=== PATIENT | female | born 2000 | race Caucasian/White ===

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

== ENCOUNTER 2020-05-15 11:26 | Emergency (ER) | payer OTHER ==
[~2020-05-15] VITALS: Ht 167.6 cm; Wt 117.0 kg
--- OUTSIDE RECORDS SUMMARY | ~2020-05-15 | XMS | Encounter Summary ---
Demographics + + + | Address | [address] | | | [place] [address] | + + + | Home Phone | | + + + | Preferred Language | Unknown | + + + | Marital Status | Single | + + + | Roman Catholic Affiliation | Unknown | + + + | Race | White | + + + | Ethnic Group | Not or | + + + Author + + + | Author | [facility] | + + + | Organization | [facility] | + + + | Address | Unknown | + + + | Phone | Unavailable | + + + Support + + + + + | Name | Relationship | Address | Phone | + + + + + | None None | ECON | Unknown | Unavailable | + + + + + | Heriberto Winter | ECON | [address] [address] | | | | | [place] | | | | | [id number] | | + + + + + Care Team Providers + +------+ + | Care Aging Room Hand Name | Role | Phone | + +------+ + PCP | Unavailable | + +------+ + Encounter Details +--------+ + + + + | Date | Type | Department | Care Team | Description | +--------+ + + + + | 12/07/ | Office | [facility] | Consult, [facility] | Progress Note | | 2004 | Visit-Trans | | | | | | cribed | | | | +--------+ + + + + Social History + +-------+ +--------+------+ | Tobacco Use | Types | Packs/Day | Years | Date | | | | | Used | | + +-------+ +--------+------+ | Never Assessed | | | | | + +-------+ +--------+------+ + + + | Sex Assigned at | Date Recorded | | | | + + + | Not on file | | + + + + + + + | Job Start Date | Occupation | Industry | + + + + | Not on file | Not on file | Not on file | + + + + + + + + | Travel History | Travel Start | Travel End | + + + + + + | No recent travel history available. | + + documented as of this encounter Progress Notes Interface, Orchestrator In - 06/17/2005 12:44 AM PDT [id number] 12/07/2004 12/07/2004 [id number] [facility] Date: 12/07/2004 Clinic Name [facility] Discipline Speech Language Pathology Susan Winter, a [age]-year, [id number] girl, [facility]. Susan was referred for this developmental evaluation by her primary care physician, Dr. Camille Addison, of [place], [place]. Susan was evaluated through the [facility] and was seen by developmental pediatrics, psychology, occupational therapy, and speech language pathology. Susan comes to us today with concerns regarding her speech language development, behavioral issues, attention and learning difficulty. Susan was accompanied to today's evaluation by her mother, Francoise, and her father, Heriberto. Background: This information is obtained via chart review and parent report. This young lady's history is rather benign. Susan was born weighing 7 pounds, 10 ounces with a hospital stay of only two days. During delivery, reports indicate that the doctor induced labor. Reports also indicate that the umbilical cord was wrapped around this young lady's neck. Susan did experience jaundice; however, no treatment was needed. At approximately six months' of age, she did experience an episode of RSV, and health history is significant for vomiting spells until [age] years of age and frequent otitis media until [age] years of age (please see developmental pediatrics report for further details). In terms of development, this young lady rolled over at approximately four months of age, sat up at [age] and a half months of age, walked at [age] year [age] months, produced her first words at approximately [age] year [age] three months, and started using words in combination at approximately [age] years. Her mother does feel that there was some delay in her continued acquisition of speech and language skills; however, she was relatively on time using her first words. 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 She does participate three times a week for approximately three hours a day. In addition, this young lady receives direct speech language treatment twice monthly for 30 minutes each session as well as consults twice monthly for 15 minutes each session. Her parents do report that they are considering adding occupational therapy services. We do believe that this young lady's eligibility for control analyst special education is under developmental delay. This young lady has been previously evaluated by the educational service district. Cognitive testing was completed (please see psychology report for details). Her last speech language evaluation took place in August of 2004. Results on the Preschool Language Scale-Fourth Edition indicate a receptive language standard score of 74 and an expressive language standard score of 85. Susan has also participated in childcare five days weekly for approximately 8.5 hours a day. A total of 10 other children were in this home setting. Her mother does report that she has been recently asked to leave (please see psychology report for details). Family History: There is no significant family history to report; however, Susan's mother does report that she was slow in learning to talk. Speech and Language Evaluation Behavioral Observation: Susan's behaviors were evaluated using the Autism Diagnostic Observation Schedule (ADOS), module II. This assessment provides us opportunities to evaluate Susan's communication, social interaction, and play with developmentally appropriate toys in structured play interactions. Module II was selected because of Susan's spontaneous phrased speech. This evaluation also allows us opportunities to observe and illicit behaviors so that we might differentiate those consistent with autistic disorder and disorders found on the autism spectrum from those of typically developing children. Communication: In terms of communication skills, Susan was noted to use a variety of spontaneous sentences in order to engage her communication partner. She regularly produced sentences between two and five words in length. Susan regularly used language throughout today's evaluation to serve such functions as requesting information ( what dem doing ), provide information ( blanket away because baby got sick ), responding to questions, and for commenting ( all done dis toy, him take da bath, go into car but it don't open it ). Susan does demonstrate considerable difficulty with appropriate syntax and seems to omit very basic language forms from her spontaneous speech. She does use communication for social interaction and engagement and is able to pair this with conventional gestures. She shook her head yes and no, shrugged her shoulders, and was observed using a touch point and a distal point to respond and to initiate joint attention. While Susan communicated effectively throughout today's observation, her language skills are immature given her chronological age. Susan did demonstrate some pronoun confusion and deletion and deletion and confusion using verbs to be. For example, Susan produced the sentences, Get him climb up the waddle, Her all done, Her got warm feet up, and Inside sleep. Children Susan's chronological age generally use more adult-like sentences such as, She's all done, She's inside sleeping, I'm all done, and What are they doing. Susan was also noted to delete plurals in sentences toy/toys, bubble/bubbles, and was inconsistent in her use of present progressive ing. Social Interaction: In terms of reciprocal and social interaction, Susan frequently initiated interactions with the assessing clinician. Susan had little difficulty indicating what she wanted and in multiple occasions directed the clinician's attention and actions so that she could obtain desired items. Susan responded to her name on first press and regularly used eye contact to initiate, maintain, and disengage from the social interaction. Susan was able to respond to her play partner's joint attention by using eye contact and the word look to locate her play partner's point of interest. She was able to demonstrate her knowledge of social routines by actively participating in a birthday constitution party scenario and recognized the baby doll as an independent agent. She talked to the baby doll, fed her, and supported her when she had the baby doll blow out pretend candles. Susan did enjoy participating in the singing of happy birthday; however, she had a difficult time with the multi-syllabic word happy and instead was observed producing hap birthday instead of happy birthday while singing. Susan was able to indicate her pleasure and displeasure throughout today's observation and was observed smiling and laughing in the presence of her play partner. Play: In terms of play, Susan was noted to play functionally with a variety of toys presented including those used in a birthday constitution party scenario and small figures. Susan did have some difficulty with imagination and creativity, as her ability to expand her play using the small characters was limited in range. Susan was able to present a family scenario using these characters. Stereotyped Behaviors and Restrictive Interests: Susan did not display any unusual interest in play materials nor were hand mannerisms observed. This young lady was quite appropriate; no self injurious behavior was observed nor were any unusual repetitive interests or stereotyped behaviors seen. The ADOS yields both the communication score and the social interaction score which are then combined to yield a total score. These scores help clinicians on the autism team determine if a child's behavior is more or less similar to children who have been diagnosed with autistic disorder or disorders on the autism spectrum from those of typically developing children. Susan's performance yielded her a communication score of 3 which is below the cutoff for autism. In terms of reciprocal social interaction, Susan achieved a score of 0 which is below the cutoff for autism. By combining the two, this young lady achieved a score of 3 which is below the cutoff for autism. In terms of play, she achieved an imagination activity score of 1 and a score of 0 for stereotyped behaviors and restrictive interests. These scores would indicate that Susan's behaviors are not very similar to those behaviors observed in children with a diagnosis of autistic disorder. This evaluation did give us opportunities to evaluate her language as indicated above. Susan does have a difficult time maintaining a level of reciprocity in conversation as well as coordinating more informational gestures with her language. However, we do feel that these deficits in communicating have more to do with language deficits than behaviors that might be seen in a child with autism. Behavioral Observation 2: Susan's behaviors were also evaluated using the Autism Screening Instrument for Educational Planning (ASIEP-II). This is a standardized tool used to compare a child's given behaviors with behaviors exhibited by children who have already been diagnosed with autism. The interaction assessment subtest provides us opportunities to evaluate children's interaction, constructive independent play, lack of response, or aggressive or negative behavior. During this observation, Susan participates in three play scenarios including active modeling where her play partner plays in parallel but does not overtly engage her. Second, when her play partner sits back passively but can respond to her initiations, and thirdly, when she is given direct, unambiguous cues such as stand up, give me the bear, let's jump, etc. Out of 48 opportunities, Susan demonstrated interaction on 31 occasions, constructive independent play on 13 occasions, and no response on four occasions. By combining these scores, this young lady's interaction percentile is less than 2% which suggests that her behaviors are less in keeping with children with a diagnosis of autism and much more interactive than would be seen with a child of autistic disorder. Speech Sound Production/Articulation: No formal articulation measures were completed today. However, based on informal observation, this young lady continues to demonstrate what we would consider phonological patterns including the truncation of words or syllablness and the gliding of L and R, however still considered developmentally appropriate for a child this age. The sound substitution of D for N in medial position, fronting including K for T and D for G so that tiger is produced razia as well the omission of final consonants. This young lady was found to be 75-80% intelligible in a known context with her intelligibility greatly reduced when larger sentences were produced and the context was not known. Voice Resonance Fluency and Praucity: Susan presented with appropriate voice and resonant quality. No disfluent characteristics were noted. Procautic features including rate, rhythm, and loudness were appropriate. Oral Motor and Feeding: Cursory examination of this young lady's oral peripheral mechanism revealed appropriate muscle tone in her lips, tongue, and cheeks. This young lady's face is symmetrical at rest. She was able to manage secretions throughout today's evaluation and demonstrated appropriate range of motion for feeding and speech sound production. Impressions: Formal measures as well as observation raises a means to obtain needed information for differential diagnoses as well as to address concerns about Susan's development and possible diagnoses. Based on today's parental report, observation, evaluation, and team input, we find that Susan presents with receptive and expressive language disorder characterized by deficits in comprehension as well as syntax and morphology. In addition, articulation errors and phonological patterns were also observed. We do feel that this young lady's deficits are likely due in part to a diagnosis of global developmental delay with language being her greatest area of impact. Team Diagnoses 1. Global developmental delay. 2. Receptive language more impacted than expressive language. 3. Regulatory issues with concomitant behavior problems (please see psychology report and occupational therapy report for details). Recommendations 1. We do feel that Susan is appropriately placed in her control analyst special education classroom. She may also benefit from participation in a traditional community-based preschool so that she may learn from typically developing peers. It will be important for her to be closely monitored in terms of her behavior particularly in a community-based preschool to determine whether or not she would be able to function appropriately in a mainstream kindergarten classroom. 2. Given the nature of Susan's deficits, we do feel that additional speech language support would be warranted. We do feel at the very least that one-on-one speech language services one time weekly would be appropriate. We do understand that this level of service may not be possible through the control analyst special education program; however, we would recommend that the family consider seeking additional services through community providers. 3. As the family can support this young lady's level of comprehension by using short, concrete phrases as well as repetition, we do feel Susan may also benefit from participation in reading books with a repetitive line. We often find that a repetitive line provides children opportunities to be succesful. Books with repetative lines are predictable. Lines are seen on every page of a book providing children opportunities to practice more appropriate syntax in a comfortable, predictable environment such as book reading. Language goals should include pronoun use, verb use, appropriate morphological markers such as plural forms and present progressive ing as well as understanding and use of appropriate question forms. It was an absolute delight working with this young lady and her family today. Should you have any questions about today's evaluation, report, or recommendations, you may contact me directly at . For individual discipline findings, please see individual discipline reports. Anil Marcos M.S.Alyson Licensed Speech Language Pathologist [facility] [id number] C: 12/19/2004 ROGER [id number] Electronically signed by Anil Marcos 12-19-2004 01:37:51 PM documented i n this encounter Plan of Treatment Not on filedocumented as of this encounter Visit Diagnoses Not on filedocumented in this encounter"
--- OUTSIDE RECORDS SUMMARY | ~2020-05-15 | XMS | Encounter Summary ---
Demographics + + + | Address | [address] | | | [place] [address] | + + + | Home Phone | | + + + | Preferred Language | Unknown | + + + | Marital Status | Single | + + + | Buddhist Affiliation | Unknown | + + + | Race | White | + + + | Ethnic Group | Not or | + + + Author + + + | Author | [facility] | + + + | Organization | [facility] | + + + | Address | Unknown | + + + | Phone | Unavailable | + + + Support + + + + + | Name | Relationship | Address | Phone | + + + + + | None None | ECON | Unknown | Unavailable | + + + + + | Heriberto Winter | ECON | [address] | | | | | [place] | | | | | [address] | | + + + + + Care Team Providers + +------+ + | Care Director Behavioral Health Name | Role | Phone | + [...] as of this encounter Progress Notes Interface, Tax Director In - 06/17/2005 12:44 AM [facility] [id number] 12/07/2004 12/07/2004 [id number] [facility] Date: 12/07/2004 CLINIC NAME: [facility] DISCIPLINE: OCCUPATIONAL THERAPY BACKGROUND INFORMATION: Susan is a 4-year 7-month-old female, [facility] by her primary care physician, Dr. Camille Addison. She is referred with concerns about her delayed language skills and some behavior problems, including some manipulative behavior and difficulty with inattention. Her parents, Heriberto and Francoise Lawsonmillerzainab also have concerns about her developmental delays, language difficulties, attention difficulties, and behavior. Susan reportedly was born at term, weighing 7-pounds 10-ounces. She reportedly was jaundiced at . However, did not require any treatment. She also had respiratory syncytial virus at around [age] months of age. She had frequent vomiting until 3-years of age, and frequent otitis media until 2-years of age. Her motor milestones initially were within the average range, including rolling at four months, and sitting at 8 1/2 months. However, she did not walk until 17-months, and did not start combining words until 3-years-of age. EDUCATION: Susan is currently involved in a preschool program three days per week through the [facility]. She receives speech therapy two times per week and consultation two times per month, and is reportedly going to be starting occupational therapy services. Previous developmental testing, revealed some delays in her language scores, including a receptive language standard score of 74, and an expressive language standard score of 85 on the Preschool Language Scale-Fourth Edition. She obtained a full-scale standard score of 80 on the Liliana Preschool and Primary Scale of Intelligence. This testing was done in August of 2004. She reportedly has had some difficulty with behavior in her day care setting. Candis parents completed the Sensory Profile in September of 2004. This caregiver questionnaire was not repeated during today's evaluation. Susan was found to score in the definite difference range in the areas of vestibular, touch, and multisensory processing. She scored in the probable difference range in oral sensory processing. She reportedly seeks out opportunities to move, and she frequently touches things. However, she also avoids some tactile stimulation. She also has difficulty in the area of modulation related to body position and movement. She has difficulty sitting for long periods of time, and sustaining her attention. It was recommended that Susan receive direct and consultation occupational therapy services to develop a sensory diet plan, and to provide sensory modulation activities. PROCEDURES: Information for this evaluation was obtained by parent interview, clinical observations, and observations of the child's performance during specific tasks. In addition, the following assessments were administered: The Neri Scales of Early Learning AGF Edition. BEHAVIORAL OBSERVATIONS: Susan readily left her parents and came with this therapist to do some developmental testing. She was initially very cooperative, however, as she became more tired, she more frequently was up and out of her chair, and refusing to complete test items. She likes to draw, and will draw multiple circles, at times with lines coming off of the circles. She stated that these were pictures of a baby. TEST RESULTS: The Neri Scales of Early Learning is a standardized assessment, looking at the areas off visual spatial skills, fine motor skills, receptive and expressive language skills. The mean early learning composite standard score is 100 with a standard deviation of 15. Susan received a standard score of 61 and a percentile rank of 1. On the Visual Ecology Teacher Scale, she obtained a T-score of 29 and an age equivalent of 41-months. Susan was able to discriminate spatial position, and was able to match some letters. She had more difficulty matching short words and with visual memory tasks. On the Fine Motor Scale she obtained a T-score of 25 and an age equivalency of 40-months. She was able to draw through paths, and was able to use scissors in order to cut sequentially. She did not have to cut around any shapes on this particular task. She had more difficulty copying shapes unless they were circles. On the Receptive Language Scale, she obtained a T-score of 24 and an age equivalent of 36-months. She was able to identify the function of objects, and follow two-step commands. She also was able to answer several questions about general knowledge, such as her name, whether or not she was a boy or a girl, and how many eyes she had. When she was unable to answer a question, she would fill the conversation with some unrelated phrases. On the Expressive Language Scale, she obtained a T-score of 35 and an age equivalency of 43-months. Susan does use pronouns, and uses three to four-word sentences, and sometimes longer sentences when communicating. She was able to repeat short sentences. She had more difficulty using language to answer questions or to explain the meaning of a word. She also was not yet able to consistently count. Overall, Susan showed delays in all areas of development. Her expressive language score was her highest, and is a relative strength for her. Susan's parents were interviewed about her sensory processing issues. They report that tactually she enjoys a great deal of light stimulation around her face. She will tickle her face with a piece of fleece, as well as taking her mother's hair and gently rubbing it on her face. She likes her back rubbed lightly as well. She has no difficulty with messy or sticky textures, and her mother reports that when she was younger she emptied an entire container of Vaseline all over her room. She does not particularly like to be restrained or held tightly. In the area of auditory input, she showed some sensitivity to loud sounds. However, there are no particular sounds that seem to startle or bother her. She does not watch television unless it is a video tape and she does enjoy playing on the computer. Susan reportedly will pocket food, and hold it in her mouth for a period of time. She also needs liquids to help wash down the food. She will frequently chew meat, in order to get all of the flavor out, and then spit the meat back out. As an , she reportedly vomited easily, and would gag if the nipple of the bottle was placed in her mouth in the wrong place. She did not seem to have a great deal of difficulty transitioning to baby foods, and then to table foods, although she still does choke and gag occasionally. She prefers to brush her teeth on her own, but will allow her mother to do it. If her mother moves the toothbrush too far back over molars, it will elicit a gag. Susan is describes as an outside girl . She loves to be outside and loves to run and jump. Her parents report that movement does seem to help to calm her. Susan is described as doing well at birthday parties, and that she understands the concept of the alliance party. At daycare, she has had some difficulty, as she is often required to entertain herself. Her mother reports that given the opportunity, Susan will get into things that are inappropriate and frequently needs guidance and structure. DIAGNOSTIC IMPRESSION: Today's team found Susan to be demonstrating global delays in her development. She demonstrates more significant difficulty with receptive language than expressive language. Susan is also demonstrating regulatory issues, with concomitant behavior problems. She is a child who seeks out sensory input, but is easily over-stimulated, and then has difficulty calming herself. RECOMMENDATIONS: 1. Susan appears to be appropriately placed in an eyeglass lens grinder special education classroom. She will also benefit from participation in a traditional community-based preschool. It will very important to closely monitor her behavior in her community-based preschool to determine whether she would be able to function in a mainstream kindergarten classroom next year. 2. Susan is in need of additional speech and language services. We would recommend individual speech language therapy at least one time per week. While this level of service may not be possible through the [facility], parents should strongly consider additional services in the community. 3. In addition, Susan would benefit from direct occupational therapy with a sensory integrative approach. This was recommended previously and we support this recommendation. 4. Susan and her parents would benefit from working with a competent mental health professional (With a behavioral orientation), who can assist them in developing strategies to deal with Susan's attention-seeking. We do not know of such a professional in [place], but if the parents are interested in coming to [place], perhaps this summer, we would recommend working with Dr. Jd Garcia, [facility]. 5. Susan should be referred to the [facility]abilities Program in order to determine whether she qualifies for services through them. 6. Additional information about regulatory issues can be found on the Internet at www.[employer].Intrusic. Parents may also benefit from reading the book, Raising Your Spirited Child , by Loan Keithteri Marroquin. 7. Susan would benefit from a reevaluation of her developmental and behavioral status following her kindergarten year. We would be happy to provide this evaluation at parent request. To begin this intake process, please call the digital media coordinator at [phone]. I appreciated the opportunity to meet and work with Susan and her family. If there are any questions or concerns regarding this report, please free to contact this therapist at [phone]. Annie Cruz/laron P [phone] cc: Electronically signed by Jud Gaines 01-02-2005 04:40:13 PM documented i n this encounter Plan of Treatment Not on filedocumented as of this encounter Visit Diagnoses Not on filedocumented in this encounter"
--- OUTSIDE RECORDS SUMMARY | ~2020-05-15 | XMS | Encounter Summary ---
Demographics + + + | Address | [address] | | | [place] [address] | + + + | Home Phone [...] Author + + + | Author | [facility] | + + + | Organization | [facility] | + + + | Address | Unknown | + + + | Phone | Unavailable | + + + Support + + + + + | Name | Relationship | Address | Phone | + + + + + | None None | ECON | Unknown | Unavailable | + + + + + | Heriberto Winter | ECON | [address] [facility] | | | | | [place] | | | | | [address] | | + + + + + Care Team Providers + +------+ + | Care Restaurant Greeter Name | Role | Phone | + [...] as of this encounter Progress Notes Interface, Plug Machine Operator In - 06/17/2005 12:44 AM PDT [id number] 12/07/2004 12/07/2004 [id number] [facility] Date: 12/07/2004 Clinic Name [facility] Discipline Speech Language Pathology Susan Winter, a [age]-year, [id number]-ugy girl, was [facility]. Susan was referred for this developmental evaluation by her primary care physician, Dr. Camille Addison, of [place], [place]. Susan was evaluated through the Autism [...] young lady is currently enrolled in an fountain helper special education classroom through the [facility]. She does participate three times a week for approximately three hours a day. In addition, this young lady receives direct speech language treatment twice monthly for 30 minutes each session as well as consults twice monthly for 15 minutes each session. Her parents do report that they are considering adding occupational therapy services. We do believe that this young lady's eligibility for fountain helper special education is under developmental delay. This [...] routines by actively participating in a birthday republican scenario and recognized the baby doll as [...] presented including those used in a birthday republican scenario and small figures. Susan did have [...] that Susan is appropriately placed in her fountain helper special education classroom. She may also benefit [...] service may not be possible through the fountain helper special education program; however, we would recommend [...] Anil Marcos M.S.Alyson Licensed Speech Language Pathologist [facility] [id number] A C: 12/19/2004 ROGER [id number] Electronically signed by Anil Marcos 12-19-2004 01:37:51 PM documented i n this encounter Plan of Treatment Not on filedocumented as of this encounter Visit Diagnoses Not on filedocumented in this encounter"
--- OUTSIDE RECORDS SUMMARY | ~2020-05-15 | XMS | Encounter Summary ---
Demographics + + + | Address | [address] | | | [place] [address] | + + + | Home Phone | | + + + | Preferred Language | Unknown | + + + | Marital Status | Single | + + + | Yazdanism Affiliation | Unknown | + + + | Race | White | + + + | Ethnic Group | Not or | + + + Author + + + | Author | [facility] | + + + | Organization | [facility] | + + + | Address | Unknown | + + + | Phone | Unavailable | + + + Support + + + + + | Name | Relationship | Address | Phone | + + + + + | None None | ECON | Unknown | Unavailable | + + + + + | Heriberto Winter | ECON | [address] [facility] | | | | | [place] | | | | | [id number] | | + + + + + Care Team Providers + +------+ + | Care Coil Winder Name | Role | Phone | + [...] as of this encounter Progress Notes Interface, Tar Leveler In - 06/17/2005 12:44 AM PDT [id number] 12/07/2004 12/07/2004 [id number] ARMIDA Jara CLINIC DATE:12/07/2004 CLINIC: AUTISM CLINIC DISCIPLINE: PSYCHOLOGY REFERRAL AND BACKGROUND INFORMATION: Susan Winter, a 4-year, 7-month-old girl, was seen today by psychology as part of the interdisciplinary [facility] ([facility]). Her vaccine specialist, Dr. Camille Addison M.D., referred Susan and her family to the Autism Clinic because of ongoing concerns about her developmental and behavioral status. The child was accompanied to clinic today by her parents, Heriberto and Francoise Hannadanielablancozainab. Information below was obtained via review of available records, parent interview, standardized assessment, and participation in post-clinic staffing. As part of today's clinic, Susan was seen by developmental pediatrics, speech/language pathology, psychology, and occupational therapy. Please see the other discipline reports for additional information and recommendations. Susan currently lives with her parents, and her 7-year-old and 3-year-old sisters. There are reportedly no developmental concerns regarding her siblings. Ms. Winter had some difficulties learning to talk, according to clinical records. However, the family reported that there was no additional learning difficulties, mental health issues, speech, or educational concerns generally in their family history. Susan was 7 lb 10 oz at , the product of a vaginal delivery. Reportedly, the doctor induced labor, and the delivery was complicated with a cord around Susan's neck. In addition, Ms. Cruzs blood pressure was low during the delivery. The and her mother were released from the hospital after two days. At , Susan had mild jaundice, which resolved without treatment. She has never been a regular sleeper. She had a history of reflux issues as an . The family noted that many of Susan's developmental milestones were markedly delayed. They recall first knowing that she was following her own timeline when she was six months of age, when she would become extremely and extensively upset during car trips. According to the family's recall, Susan rolled over at four months, sat up at 8-1/2 months, and began walking at 1 year, 5 months. She was toilet trained diurnally by [age] years of age. She spoke her first word at 1 year, 3 months, and began using multi-word combinations at approximately [age] years of age. They further note that Susan has always had a very strong gag reflex. In addition, she has a tendency to chew on mouthfuls of food for extended periods of time. Susan is attending a preschool classroom, three times a week for three-hour sessions. She is on an Individualized Family Service Plan at the [facility]. Her special education eligibility is under Global Developmental Delay. Susan only began her current preschool classroom this school year, but her mother feels that she has already established beginning friendships. She reportedly receives direct speech services two times a month for 30-minute sessions. Susan has completed three evaluations by the Early Intervention services, and it was only on the most recent that she was found eligible for services. In August of 2004, Susan participated in an administration of the Liliana Preschool and Primary Scale of Intelligence. Records indicated that she received a Full Scale standard score of 80, Verbal standard score of 86, and a Performance standard score of 79. These scores were in the low average to borderline range of intellectual functioing. On the Preschool Language Scale, Fourth Edition, Susan received a Receptive Language standard score of 74, an Expressive Language standard score of 85, and a Total Language standard score of 77. On selected subtests of the Battelle Inventory, Susan received a Personal/Social score of 81, an Adaptive Social score of 80, a Motor Score of 72, and a Communication Score of 65. CURRENT CONCERNS: and Ms. Winter reported that they do not have extensive concerns regarding autism for their daughter, Susan. However, they note that she is very sensitive to transitions and to changes in routines. Until she was about [age] years of age, Susan would become very upset during trips, transitions or novel situations. She would scream and cry until she threw up. Now she only occasionally throws up (approximately 3 times a year), when she has a new gas analyst or some other large novel event occurs. She has difficulty organizing her speech. She usually pieces together phrases (i.e, me go to park or I go see Sharon). In addition, Susan can ask questions repetitively for extended periods of time. Susan can be impulsively aggressive on occasion. PROCEDURES USED: Autism Diagnostic Observation Schedule (ADOS). Autism Screening Inventory for Educational Planning (ASIEP-II). Gore Adaptive Behavior Scales - Interview Edition (VABS). [place] Autism Rating Scale (GARS). Child Behavior Checklist for ages 1-1/2 to 5 (CBCL). Parent Interview. Record Review. Report Writing. Total time for this evaluation was 1.5 hours of psychological testing, and a diagnostic interview was completed. BEHAVIORAL OBSERVATIONS: Susan presented in clinic today as a quiet, somewhat serious girl, who was appropriately dressed and groomed. She generally showed a narrow range of affect when interacting with me, and seemed mildly concerned and worried. She used limited eye contact on greeting, and very gradually used more eye contact across our interaction. Susan was observed to initiate social conversations, to use nonverbal gestures, and pointing. In addition, she readily interpreted other people's pointing. Susan was compliant to most examiner requests today. She had marked difficulties in her language skills, offering multiple disjointed phrases. Overall, Susan demonstrated some behaviors consistent with a diagnosis on the autism spectrum, including limited range of affect and some difficulties with her speech/language skills. However, Susan also demonstrated many behaviors not consistent with a diagnosis on the autism spectrum, including abilities to initiate conversations, ease with interpreting joint attention, and a varied range of play skills. TEST RESULTS: Adaptive Functioning: Susan's parents were interviewed in order to complete the VABS for her. This instrument provides information in three areas thought to be important in becoming an independent adult. At Susan's age, emphasis is on emerging skill development in each area. Today, Susan obtained an Adaptive Behavior Composite score of 69. This score falls more than two standard deviations below the mean when compared to other children of Susan's age. This suggests significant delays in adaptive skills acquisition. Subdomain scores were as follows: Communication = 70 (age equivalent 2 years, 7 months); Daily Living Skills Domain = 74 (age equivalent 3 years, 2 months), and Socialization = 79 (age equivalent 3 years). As expected from parent report, Susan's weakness was in the area of Communication, as she has only recently begun to develop the use of full sentences. Behavioral Adjustment: Susan's parents also completed the CBCL for their child. This paper and pencil questionnaire yields scores in various behavioral domains allowing for comparison with a normative sample. Scores on the CBCL have a mean of 50 and a standard deviation of 10. Today, Susan obtained a Total Problems T-score of 65, Internalizing Problems T-score of 58, and an Externalizing Problems T-score of 68. Susan's Externalizing Problems and Total Problems score were in the clinically significant range. In addition, clinically significant elevations were noted for the Attention Problems subscale (T-score = 70). Her parents reported that Susan has difficulty concentrating or sitting still. A borderline elevation was noted for Aggressive Behavior (T-score = 66), and her parents endorsed that Susan is frequently defiant, demanding and easily frustrated. On the DSM-oriented scales of the CBCL, Susan received a significantly elevated score for attention deficit/hyperactivity problems (T-score = 76). Susan's parents reported concerns regarding their daughter's attention difficulties and impulse controls. They noted that Susan has difficulty waiting her turn, and shifts rapidly from one activity to another. Autistic Symptoms: Standardized Instruments: Susan participated in an administration of the ADOS. This instrument is comprised of play-based activities that have been developed to press for behavior that distinguishes children with autism from typically developing children. Using the ADOS algorithm for the DSM-IV autism diagnosis, Susan received a Communication total score of 3, a Social Interaction total score of 0, and a Combined Total score of 3. All of these scores fall below the cutoff for traditional autism, suggesting that Susan does not display behaviors that are typically seen in children with autism. In addition, she received a score of Imagination Creativity of 1 and a Stereotyped Behaviors and Restricted Interests score of 0. Susan participated in the ASIEP-II. This instrument also provides an opportunity to observe social and play skills, and allows for comparison with a normative sample of children with autism. Today, her Social Interaction skills fell below the 2nd percentile, and her autistic speech characteristics fell in the 4th percentile. These scores suggest that Susan demonstrated very few social and speech/language characteristics that would be expected from children with autism. Susan's parents completed the GARS about her. This paper and pencil questionnaire yields an autism quotient, which is used to predict an individual's probability of having autism. Today, Susan obtained an autism quotient of 70, placing her probability of having autism in the low range. Parental Interview: Based on information provided by Susan's parent in [id number] interview, the DSM-IV diagnostic criteria for autism were examined. and Ms. Winter reported on their daughter's social interaction skills. They noted that she has a great interest in interacting with other children. She can effectively approach and engage with her peers. They feel that Susan has already established friendships at her preschool classroom and in her previous daycare. Reportedly, her teacher says that she is a leader 50% of the time and a follower 50% of the time when socially interacting with her peers. and Ms. Winter commented on their child's social communication abilities. They note a delay in language onset and marked difficulties in current language abilities. Susan seldom uses full sentences and her syntax is incorrect a majority of the time. There are times that it is difficult to understand her. She prefers to use very short phrases. She does seek out adults for assistance, and will invite them to play with her. She very much likes to be a helper around the house, and assist with cleaning and taking care of household daily living tasks. and Ms. Sokoloski also discussed Susan's difficulty with stereotyped and repetitive interests. They note that she can spin on occasions in a self-comforting sort of way. They have had to consistently make sure that she does not spin in the kitchen, because of safety concerns. She plays a variety of activities. They note that she used to be quite upset with novel situations, screaming and refusing to sleep even during long family trips. However, Susan has reportedly become less upset over such events since she was 3 years of age. However, she can still become wound up very quickly, almost without warning. and Ms. Winter also mentioned that Susan has some unusual fears. She is afraid of loud noises. The family also notices that she is easily distractible, unless it is an activity of her choice. She does not sit to watch television, and can be restless and overactive. In addition, she can sometimes stare blankly as if she has not heard what is being said. Overall, and Mrs. Winter did not endorse social interaction difficulties that would be consistent with the autism diagnosis. They did note marked differences in Susan's language development, although she can effectively request help from her adults, and express her likes and dislikes. Finally, Susan does not have many repetitive or stereotypic activities. She can spin for extended periods of time. Her mother believes that this is a relaxing activity. OTHER DISCIPLINES: In addition, Susan participated in the administration of the Neri Scales of Early Learning (MSEL) with the occupational therapist today. Please see that discipline's report for specifics regarding her performance. Results from the MSEL were incorporated in the diagnostic process. DIAGNOSTIC IMPRESSIONS: Susan Winter, a 4-year, 7-month-old girl, was seen today by psychology as part of the Autism Clinic of [facility]. Results from standardized testing completed today suggest that Susan is evidencing difficulties in several domains. There were reported delays in adaptive skills acquisition, with age equivalents between 2 years, 7 months, and 3 years, 2 months. Further, Susan's scores on the MSEL suggest significant developmental delays in all areas assessed,with age equivalents between 3 years and 3 years and 7 months. Currently, Susan should be thought of as a child with a global developmental delay. Based on our observation of Susan in clinic today, parental report, and her scores on standardized assessments, it is our professional opinion that Susan does not meet DSM-IV diagnostic criteria sufficiently to warrant a medical diagnosis of autistic disorder. While Susan does have some communication difficulties, she remains interested in socially interacting and sharing her interests with others and to not have extensive difficulties in the area of restricted repetitive behaviors. Based on previous results reported from her assessment in August of 2004, and developmental assessments today, Susan is diagnosed with a receptive language disorder. Scores indicate that she has an ability to speak at a higher developmental level than she has to understand language. MEDICAL FINDINGS: As part of today's assessment, Susan was seen by the developmental vaccine specialist. The doctor noted a normal neurological and physiological examination. DIAGNOSES: Madeline I Receptive Language Disorder Madeline II Global Developmental Delay Madeline III Normal physical and neurological exam Madeline IV Attention and impulsive difficulties, regulatory sensitivities Madeline V Current global assessment of functionin. RECOMMENDATIONS: 1. Susan appears to be very appropriately placed in an [employer] classroom. She will also benefit from participation in a traditional, community-based preschool. It will be very important to closely monitor her behavior in her community-based preschool to determine whether she should be able to function in a mainstream kindergarten classroom next year. 2. Susan is in need of additional speech/language services. We would recommend individual speech/language therapy at least one time per week. While this level of service may not be possible through the [employer], and Ms. Winter should strongly consider additional services in the community. 3. In addition, Susan would benefit from direct occupational therapy with a sensory integration approach. This was recommended previously and we support this recommendation. 4. Susan and her parents would benefit from working with a competent mental health professional (with a behavioral orientation) who can assist them in developing strategies to deal with Susan's attentional and impulsive behaviors, and her attention-seeking disruptive behaviors. We do not know of such a professional in [place], but if the parents are interested in coming to [place], perhaps this summer, we would recommend working with Jd Garcia, Ph.D. here at [facility]. The parents should contact me directly if they are interested at [phone]. 5. Susan should be referred to the [facility] Developmental Disabilities Program in order to determine whether she qualifies for services through them. This could serve as a resource to identify appropriate local services and advocacy. 6. Additional information about regulatory issues can be found on the Internet at www.[employer]pinion[employer].org. The parents may also benefit from reading the book, Raising Your Spirited Child by Loan Marroquin. 7. Susan would benefit from a reevaluation of her developmental and behavioral status following her kindergarten year. We would be happy to provide this evaluation at parent request. To begin this intake process, please call the rehab office coordinator at . Hannah Marin, Ph.D. Linden Toro, Ph.D. Psychology Resident Psychologist I was present for this evaluation and participated in critical portions of the assessment and report writing. I agree with the diagnoses and recommendations. Linden Toro, Ph.D. Psychologist [id number] P [id number] c: 12/15/04 wmd C: 12/22/04 dms Electronically signed by Linden Toro 12-22-2004 12:54:57 PM documented i n this encounter Plan of Treatment Not on filedocumented as of this encounter Visit Diagnoses Not on filedocumented in this encounter"
--- OUTSIDE RECORDS SUMMARY | ~2020-05-15 | XMS | Encounter Summary ---
Demographics + + + | Address | [address] | | | [place] [address] | + + + | Home Phone | | + + + | Preferred Language | Unknown | + + + | Marital Status | Single | + + + | Restoration Affiliation | Unknown | + + + | Race | White | + + + | Ethnic Group | Not or | + + + Author + + + | Author | [facility] | + + + | Organization | [facility] | + + + | Address | [...] [place] | | | | | [phone] | | + + + + + Care Team Providers + +------+ + | Care Sanitary Plumber Name | Role | Phone | + +------+ + | Camille Addison MD | PCP | | + +------+ + Encounter Details +--------+ + + + + | Date | Type | Department | Care Team | Description | +--------+ + + + + | 03/19/ | Office | [facility] | Consult, [facility] | Progress Note | | 2005 | Visit-Trans | | | | | [...] as of this encounter Progress Notes 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 Camille Addison. Susan was accompanied by both parents who provide an excellent history. This girl is globally developmentally delayed, and the referral questions revolve around the progress she has made in the last few years and whether she has a specific diagnosis. Susan was born in [place], the 7 pound 10 ounce product of a normal full term that was induced at 38 weeks. She did have a nuchal cord and required some brief monitoring in the nursery but went home after two days doing well. Susan was always on the somewhat slow side from a developmental standpoint, and her parents began to get concerned about her by six months of age. She was also rather fussy and irritable as a baby. She additionally had lots of problems with recurrent otitis. From a motor standpoint, she did not walk until 17 to 18 months of age, and she is definitely not as coordinated as other children her age. She is able to pedal a tricycle but has not moved up to a bicycle with training wheels. She was quite late in her speech, probably having only a few single words by age [age]. She did have a school district evaluation at about eighteen months of age but was doing well enough not to qualify for services. 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 This was about a year ago. Through that program she gets speech therapy, OT, and PT. She is in a kindergarten classroom and is quite far behind. The expectation is to promote her into first grade and then hold her back for a second year in first grade in order to catch up a little. Her school program is at [employer] where she has an IEP. [facility] (chronologic age 4 years, 7 months). She was felt definitely not to have autism features, and her developmental scores were all in the borderline range. Behaviorally, things have improved a bit over time. Susan tends to get wound up easily. She can be quite distractible and noncompliant. There was a time when she wandered around at night, but sleep issues have resolved. She gets along well with other children. Susan eats well and has generally been quite healthy. She is on no medications and has no known allergies. She has never been hospitalized nor has she had any significant injuries. Her immunizations are up to date. She does wear glasses for close up work. She only uses these at school. Susan has eczema for which she periodically needs a topical steroid. She also has a number of molluscum warts on one of her legs. The rest of her complete review of systems is negative. The family history is not terribly contributory. Mr. Winter is 36 years old and Mrs. Winter is 35 years old. The father has high blood pressure and lots of allergy symptoms. Mrs. Winter is healthy. A 4 year old sister, Nick, has multiple allergies. She is developmentally on target. An older sister, Kaylah, is 8 years old and is doing well in the second grade. All of the children, including Susan, did have problems with recurrent otitis when younger. Neurodevelopmental Examination: This is a well-developed, slightly chubby 5-year-old who is for the most part cooperative, but at times very silly and difficult to keep on task. I think that the off task behavior was more avoidant than anything else. She did not seem excessively active or fidgety during the evaluation. Susan's height is 118.3 cm (75th centile), her weight is 25.7 kg (90th centile) and her head circumference is 52.25 cm (75th centile). Vital signs are normal: P 90, R 15, BP 96/70. Susan's skin is mostly clear. She does have a small patch or two of dry eczematoid areas in one popliteal region, I think it was on the left side. She has at least half a dozen molluscum warts which have been liberally scratched. There was only one tiny one on the other side. She also has a good-sized bruise on one paniagua. She is normocephalic with normal facial features. There are no dysmorphisms. Her tympanic membranes are nice and clear today with good mobility. Her eyes are unremarkable. Her nose is normal. Her mouth is unremarkable with a normal palate and benign pharynx. She has all primary teeth in place with one incisor that has just recently fallen out. Her neck is supple without masses. There is no significant lymphadenopathy. Chest is symmetric with clear lungs and normal heart sounds. Her abdomen is benign. Her back is unremarkable with a normal spine contour. examination was omitted. Her extremities are structurally normal with normal palmar creases. Neurologically, this girl has mildly reduced muscle tone throughout. Strength is normal. Reflexes are 1+ in the upper extremities, 2+ at the knees, and 2+ at the ankles. Susan's gait is within normal limits and her station looks normal. When she runs a little bit of femoral anteversion becomes apparent. In standing, her foot position is fairly good and her arches look good despite the low muscle tone. She is able to squat and recover reasonably well. Susan was often difficult to understand. Her articulation errors are all immaturities as best as I can tell. She is able to count by rote but does not really understand her own age. She does not identify any colors accurately. She does know bigger/smaller. She can copy a tatitlek and a very marginal cross but does not reproduce a square. Only with considerable cajoling could I get her to try to make a block bridge which was generally unacceptable. Cranial nerve examination is grossly within normal limits and sensory responses to touch and tickle all seem to be normal. Impressions: 1. Significant cognitive deficits. Overall, this girl's abilities look to me to be right around a three and a [age] year level, which computes to an estimated IQ of about 60 to 65. 2. Mollscum contagiosum. Recommendations: 1. School IEP 2. Fragile-X study. Baldo Nava M.D. Neurodevelopmental Pediatrics PB / HS [id number] / [id number] / [id number] / cc: Mr. and Mrs. Heriberto Addison Electronically signed by Baldo Nava 03-24-2006 01:36:40 PM documented i n this encounter Plan of Treatment Not on filedocumented as of this encounter Visit Diagnoses Not on filedocumented in this encounter"
--- OUTSIDE RECORDS SUMMARY | ~2020-05-15 | XMS | Encounter Summary ---
Demographics + + + | Address | [address] | | | [place] [address] | + + + | Home Phone | | + + + | Preferred Language | Unknown | + + + | Marital Status | Single | + + + | Christian Affiliation | Unknown | + + + | Race | White | + + + | Ethnic Group | Not or | + + + Author + + + | Author | [facility] | + + + | Organization | [facility] | + + + | Address [...] [place] | | | | | [address] | | + + + + + Care Team Providers + +------+ + | Care Paper Coating Machine Operator Name | Role | Phone | + [...] as of this encounter Progress Notes Interface, Business Editor In - 03/29/2006 2:07 AM PDT [id number] 03/19/2006 03/19/2006 [id number] ARMIDA GONGORA N [id number] CLINIC DATE: 03/19/2006 CLINIC NAME: CHILD DEVELOPMENT DISCIPLINE: PSYCHOLOGY IDENTIFYING INFORMATION: Susan Winter, a 5 year 10 month old girl, was seen by Psychology as part of a multidisciplinary evaluation through the Child Development [facility]. Susan was referred by her molder punch Dr. Addison due to concerns about developmental delay. Susan was also seen by the developmental molder punch, medical assembly, and speech/language pathologist at today's appointment. For additional information please refer to their reports. Additional concerns related to Susan having trouble with symbol recognition and behavior were noted by her parents, Francoise and Heriberto Winter who accompanied Susan to today's evaluation. It is hoped that the current evaluation will help clarify Susan's behavioral, emotional, diagnostic status. PERTINENT HISTORY: Extensive developmental history was not taken by the present rfp writer. The reader is referred to the Developmental Pediatrics consultation by Baldo Nava completed as part of the multidisciplinary evaluation. Briefly, Susan's history was unremarkable although she had frequent ear infections as a young child. She has previously been diagnosed as having Global Developmental Delay and there have been concerns about regulatory issues. She is currently in kindergarten at [employer] in [place], [place]. She has difficulty making friends and had behavioral problems until roughly a year ago. Susan lives with her parents and sisters, ages 9 and 4. Her parents indicate that she is enthusiastic about life, caring, loving, and funny. At home she enjoys playing with paint, playdough, and water. PREVIOUS EVALUATIONS: Susan had previously been seen by the Autism Clinic at the [facility]. Results from that evaluation on 12/07/2004 suggest a Receptive Language Disorder and Global Developmental Delay. Additionally in August 2004 Susan received an Early Intervention evaluation, according to records she received a WPPSI Full Scale IQ score of 80, a Verbal standard score of 86, and a Performance standard score of 79. These scores are considered to be within the low average to borderline range. ASSESSMENT PROCEDURES: Adaptive Behavior Assessment System, Second Edition (ABAS-II), Child Behavior Checklist (CBCL), Amado Binet Intelligence Scales, Fifth Edition (SBV). BEHAVIORAL OBSERVATIONS: Members of the assessment team made multiple behavioral observations of Susan throughout today's evaluation. Susan presented as a well-groomed appropriately dressed youngster who appeared roughly her stated age of 5 years. She easily from her parents to begin the assessment and initially put forth her best effort in all tasks. However, as tasks became more difficult Susan would try to change topics (e.g. asking where the playground was or stating she knew Parul) or attempted to take control and have the examiner engage in her game (e.g. "watch this," "watch my trick."). Susan appeared to benefit from a brief running break. Susan engaged in both self and examiner initiated interactions and speech was notable for some articulation difficulty. Susan's legs were often in motion during the evaluation and she rhythmically kicked the examination table. She appeared to prefer tasks with manipulatives. Susan's route counting skills were well developed and she demonstrated awareness of one-to-one correspondence. Given Susan's cooperation and attention in the assessment process, it is the examiner's opinion that the following results represent an accurate overview of Susan's current levels of intellectual functioning. INTELLECTUAL FUNCTIONING: Susan completed the SB-V, an individually administered, standardized test of a child's intellectual ability and cognitive strengths and weaknesses. The SB-V groups a child's intellectual ability into five factor indices each measuring verbal and nonverbal abilities: Fluid Reasoning (ability to solve verbal and nonverbal problems using inductive or deductive reasoning), Knowledge (accumulated fund of general information), Quantitative Reasoning (ability to work with numbers and numerical problem solving), Visual Spatial Processing (ability to see patterns, relationships, spatial orientations), and Working Memory (ability to manipulate/store diverse information). Scale scores are based on a mean of 100 and a standard deviation of 15 points. On the SBV, Susan, with a chronological age of 5 years 10 months achieved a Fluid Reasoning IQ Score of 62 (mild delay), a Knowledge IQ score of 91 (average), a Quantitative Reasoning IQ score of 64 (mild delay), a Visual Spatial Processing IQ score of 68 (mild delay), and a Working Memory IQ score of 57 (mild delay). These indices combine to yield a Nonverbal IQ score of 60, a Verbal IQ score of 69, and a Full Scale IQ score of 63. There is a 95% probability that Susan's true Full Scale IQ score falls between 60 and 68 and is considered to be within the mildly delayed range. Scores on the SB-V are scaled scores, which have an average of 10 and a standard deviation of 3. A child who obtains a scaled score of 10 is average for her/his age on that test. Scaled scores of 7 and 13 are 1 standard deviation below and above the mean respectively. About two-thirds of all children score between 7 and 13. Subtest scores are less reliable than are IQ score thus; they should be interpreted cautiously and conservatively. Susan obtained the following SB-V subtest scores (scaled scores): Nonverbal Domain: Fluid Reasoning (4), Knowledge (9), Quantitative Reasoning (2), Visual Spatial (2), Working Memory (2). Verbal Domain: Fluid Reasoning (3), Knowledge (8), Quantitative Reasoning (5), Visual Spatial (7), Working Memory (3). These scores suggest relatively even cognitive development. Susan demonstrated relative strength, considered to be within the average range with regard to her knowledge of common signs, signals, and actions and in her ability to apply concepts and language to define words. Generally children who obtain scores similar to Susan tend to struggle with academic tasks and may even have trouble with social situations. These potential difficulties can be improved with the provision of appropriate structure and support. Individuals who care and provide treatment for Susan should be mindful of these issues. BEHAVIORAL FUNCTIONING: Ms. Winter completed the CBCL; a paper and pencil questionnaire on which a parent rates 100 items to develop multiple clinical scales regarding social and behavioral concerns. Scores are based on a mean of 50 and a standard deviation of 10, such that most scores place between 40-60. On this measure, any score in the Clinically Significant range suggests a high level of maladjustment or a problem that needs careful monitoring. The Externalizing Problems Index (T score =62) and Internalizing Problems Index (T score=45) were within the borderline and normal range respectively. These scores combine to yield a Total Problems Composite score within the normal range (T score=59). A single clinically significant elevation was noted for the Attention Problems subscale (T score =70). The CBCL also analyzes parent report to determine if patterns emerge that suggest DSM diagnoses. Responses from Ms. Winter suggest the presence of clinically significant symptoms of Attention Deficit/Hyperactivity Problems (T score=76). There were no additional elevations reported. ADAPTIVE FUNCTIONING: Ms. Winter completed the ABAS-II, a paper and pencil questionnaire that measures developing independent skills at home, in the community, and within social interactions. Scores are obtained by comparisons to same-aged peers and are based on a mean of 100 and standard deviation of 15 points. According to Ms. Winter's responses, Susan received a General Adaptive Composite score of 88, which is considered to be within the low average range. The General Adaptive Composite is comprised of three subscales: Conceptual, Social, and Practical. Susan received a Conceptual Composite score of 78 (borderline), a Social Composite score of 87 (low average), and a Practical Composite score of 88 (low average). Scores on the ABAS-II skill areas are obtained by comparison to same-aged peers and are based on a mean of 10 and standard deviation of 3 points. Susan obtained the following ABAS-II Skill Area scores (scaled scores): Conceptual:Communication(9),Functional Pre-Academics (4), Self-Direction(6) Social: Leisure (7), Social (8) Practical: Community Use (9), Home Living (8), Health and Safety (8), Self-Care (5) In general, Ms. Winter assessed Susan as functioning as well as her peers in many adaptive skills areas. Susan demonstrates strength considered to be within the average range with regard to her conversational skills and ability to use words (Communication), ability to function in the neighborhood/community setting (Community Use), ability to assist with tasks/routines at home (Home Living), ability to show appropriate caution and care for health needs (Health and Safety), and ability to manage interpersonal relationships and utilize social conventions (Social). Susan had more difficulty with remaining adaptive skills areas including her daily use of academic skills (Functional Academics), ability to manage feelings and self-motivate (Self-Direction), and ability to care for personal grooming and hygiene needs (Self-Care). These lower score areas suggest the need for increased attention to these areas. FORMULATION/ DIAGNOSTIC IMPRESSION: Susan Winter, a 5 year 10 month girl was seen by Psychology as part of a multidisciplinary evaluation due to concerns related to developmental delay. History is significant for a prior diagnosis of Global Developmental Delay and Receptive Language Disorder. Results from standardized testing suggest that Susan is functioning over two standard deviations below the mean with regard to her cognitive and adaptive skills, individuals with this level of delay are diagnosed with mental retardation and this diagnosis appears appropriate for Susan at this time. Behaviorally, while Susan has struggled in the past these concerning behaviors have largely remitted according to her parent's report. While, Susan demonstrates some attention concerns this is thought to be a part of her mental retardation at this time and does not represent a separate behavioral diagnosis. 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 [place] I: V71.09 No Diagnosis [place] II: 317 Mild Mental Retardation [place] III: Refer to Medical Record, Developmental Coordination Disorder [place] IV: Attention concerns [place] V: GAF = 65 (current) Susan demonstrated a number of strengths during this evaluation. She was charming and was fun to work with. All things considered, with appropriate structure and support provided for her and her family, Susan is likely to find success in working through some of the concerns that were indicated in the current evaluation. Susan will continue to need a great deal of support and understanding as she develops and works through her issues. Her family has already demonstrated a capacity for support by affording her the opportunity for this evaluation; however, all Susan's care providers will need to offer similar structure, encouragement and stability if she is to find wellness. RECOMMENDATIONS: In light of the above information, the following recommendations are made (please note that recommendations are not exhaustive and that resource information is provided for convenience only and does not constitute an endorsement or referral). As Dr. Ruiz was high risk case manager, please see his report for detailed assessment team recommendations as well as specific recommendations: 1.We encourage the family to deliberately work on the development of Susan's adaptive skills. They can pick one or two items at a time to focus and work on at home. Please refer to the Adaptive Functioning section above for some particular adaptive skills areas that Susan has difficulty with. It would also be beneficial to create incentives for Susan to accomplish the desired skills. Incentives could be a variety of things including small prizes, time alone with a caregiver, or TV/game time. To increase the chances of success, Susan's family might want to start with relatively easy or small skills and work up to more difficult skills. 2.We encourage Susan's family to learn about developmental disabilities. The following website may be useful in this regard: http://www.Cellmemore/health/mentalhealth/develop_index.asp and Ms. Winter is encouraged to refer Susan to the [facility] Developmental Disabilities Program in order to secure a watch case polisher who can help find additional services and serve as an advocate. and Ms. Winter is also encouraged to contact the local Social Security Administration office regarding Supplemental Security Income (SSI) eligibility (disability benefits). For additional information please call [phone]. 3.Organizations such as the [employer] ([phone]) and [employer] (www.NanoOpto.Ubiterra, ) may be additional sources for support and assistance. 4.Outside activities that boost Susan's self-esteem and allow her to demonstrate her strengths should be encouraged. These high-energy activities provide temporary escapes from stresses and academics, help maintain self-esteem, and help to engage her in positive interactions with others. Activities could include after-school clubs, sports, [employer], Girl [employer] (http://www.girlscouts.org/), martial arts, etc. Also, consider technology or workshop courses that build on Susan's strengths. 5. and Ms. Winter might check with the local [facility] and Recreation Program for appropriate classes. For example, [facility] and [facility] reportedly has swimming classes in which extra assistants are available for children with disabilities. Many of these programs also have scholarship options. 6.It is recommended that Susan's parents share the results of this report with her school. They should work with the staff to design appropriate and reasonable academic accommodations, particularly as she gets older. For instance, based on testing today, Susan does well in environments where distractions are minimized and with periodic prompts checking her understanding of instructions. To the extent possible, it may be beneficial to replicate such conditions in her school (e.g., seating away from windows or hallways and near the front of the class). 7.At this time we would not advocate a school program focused solely on life skills. With appropriate assistance, it is believed that Susan can continue to learn and develop typical academic skills. But, it is likely that his/her progress will be slower and she will have to work harder than her peers to achieve the same goals and grades. Tutoring, learning study skills (e.g., covering the homework page so that only one problem is visible), and using goal-directed reward strategies (e.g., breaks after a set number of problems and earning small and large tangibles for homework completion) would likely be beneficial. 8.Susan will benefit best from multi-model learning techniques. This means she would be more likely to master tasks that are presented in multiple ways (e.g., making words out of long and painting them, tracing them in fingerpaint, and playing boggle, and acting them out physically). Showing and telling her the task repeatedly, while using short repetitive descriptive phrases would also be helpful (e.g., You put this here turn it and put that here. You put this here, and turn it, and put that here. Now you do it). Recall that Susan will be able to master tasks, but frequent review of the basic skills will remain necessary. 9.The [employer] is a statewide parent training and information center that can assist parents with the IEP process and review of special education law. To schedule an IEP partner please contact [phone]. 10.Susan would benefit from a reevaluation of her behavioral and educational status in approximately 1-2 years to document her continued progress. We would be happy to provide that evaluation, if requested. If interested at that time, the family is encouraged to contact our back up scan coordinator at [phone]. 11.The results of this evaluation should be shared with physicians, schoolteachers, and other care providers in order to keep them abreast of Susan's continued progress, as well as any specific areas in which she is having difficulty. Total time dedicated to the completion of the examination reported above was 2.5 hours. The results and recommendations from this evaluation were discussed with Susan and her family at the end of the session. For additional information please refer to Dr. Ruiz's report. The [facility] recognizes that it is the responsibility of the parents and the school district's team to determine eligibility for special education and to make educational plans as appropriate. The information in this report may be used to help make these decisions. It was my pleasure to work with Susan and her family today. The referral from Dr. Addison is much appreciated. If you have any questions about the information contained in this report or would like to discuss any aspects in greater detail, please do not hesitate to contact me at , pending appropriate permission. Kunal Wick Psy.D. Clinical Psychologist García P C: 03/26/2006 CARLOS cc: Electronically signed by Kunal Wick 03-28-2006 01:56:52 PM Emilia Jamison ranscription In - 03/27/2006 2:10 AM PDT [id number] 01/17/2006 03/19/2006 [id number] ARMIDA GONGORA N [id number] CLINIC DATE: 03/19/2006 CLINIC NAME: CHILD DEVELOPMENT - LEND DISCIPLINE: SOCIAL WORK Susan is 5 years old and lives in [place], [place] with her parents, Kashif and Francoise. She has two sisters, Kirby, age 9, and Lazara, age 4 years. She is referred to our clinic by her molder punch, Camille Addison MD, in [place]. This girl had been evaluated in our Autism clinic last year but was only given a diagnosis of developmental delay. She did not score within the autism spectrum. Her parents are now wondering how she has progressed, etc. They do have concerns in that she seems delayed and has trouble processing. Their 4-year daughter is more advanced than in Susan. Both other daughters are doing well in their development. Susan attends kindergarten at [employer]. She receives speech, physical and occupational therapy. She has some social problems and no real close friends. She also has behavioral difficulties becomes defiant and will get in to things she is not supposed to, both at home and at school. She used to swear frequently but this behavior has subsided. She is friendly and outgoing. At home she spends her time playing mostly in tactile play, such as painting, working with playdough and playing in water. She is not particularly physically active. The parents have been concerned about Susan's development since she was about 6 months old. However, she did not begin Early Intervention until about a year ago. She then attended a pre-school. Her parents do plan to have her go to 1st grade next year, but they will have her attend for 2 years. The mother, Laurence, is a metallurgical engineering teacher, and the father, Kashif, works in the [employer] field. They have lived in [place] for about 9 years and have no extended family in the area. They have been for 10 years. Laurence is from [place], and Kashif is from [place]. They do like the [place] area and have support from friends and also from their congregation. Both parents did well in school, and there is not a family history of learning/educational difficulties. This appears to be a positive family situation for Laurence. 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 This information was difficult for the parents to hear, but they did ask good questions about what they can do to help her. We are suggesting that a chromosome work-up, as well as Fragile X testing, be completed through the primary molder punch's office. She should continue on her IEP as well and include a social skills group. For further recommendations, please refer to the report of the high risk case manager, Avelino Ruiz, PhD, Speech and Language Pathologist. Loni Purvis LCSW [facility]/esm P cc: Electronically signed by Loni Purvis 03-26-2006 10:31:25 AM documented i n this encounter Plan of Treatment Not on filedocumented as of this encounter Visit Diagnoses Not on filedocumented in this encounter
--- OUTSIDE RECORDS SUMMARY | ~2020-05-15 | XMS | Encounter Summary ---
Demographics + + + | Address | [address] | | | [place] [address] | + + + | Home Phone | | + + + | Preferred Language | Unknown | + + + | Marital Status | Single | + + + | Buddhism Affiliation | Unknown | + + + | Race | White | + + + | Ethnic Group | Not or | + + + Author + + + | Author | [facility] | + + + | Organization | [facility] | + + + | Address | Unknown | + + + | Phone | Unavailable | + + + Support + + + + + | Name | Relationship | Address | Phone | + + + + + | None None | ECON | Unknown | Unavailable | + + + + + | Heriberto Winter | ECON | [address] [facility] | | | | | [place] | | | | | [address] | | + + + + + Care Team Providers + +------+ + | Care Tunnel Elastic Operator Chainstitch Name | Role | Phone | + [...] as of this encounter Progress Notes Interface, Farm Contractor Buyer In - 06/17/2005 1:01 AM [facility] [id number] 12/07/2004 12/07/2004 [id number] ARMIDA GONG[facility] Date: 12/07/2004 Clinic Name Autism Discipline Developmental Pediatrics Susan is a 4-1/2-year-old little girl from [place] who was referred by her regular scrum project manager, Dr. Addison, for evaluation of her development. She was accompanied by her parents, Heriberto and Francoise, who were interviewed. The parents report that neither they nor Dr. Addison have been terribly concerned about autism in Susan, though they can see a few characteristics. They are more concerned about her general development being mildly slow. She was recently evaluated at the local education service [facility] and found to have mildly depressed developmental scores, both in cognitive and speech and language areas. Previously, on two occasions, when she was 24 and 30 months old, she had evaluations for [employer] services and was found ineligible because she did not have enough of a delay. The more recent testing found her to qualify, and she has begun [employer] services and been attending them three times a week for the last two months or so. Murali report first having become concerned about Susan's development when she was slow to develop speech. They recall her developing single words at around [age] years of age and phrases at around [age] years of age. She also was slow in walking at about 23 months. They also recall Susan always having been different from their other two children in other areas besides speech. For example, she was a very difficult child to travel with, and would cry and scream in her car seat when she was 3-1/2. Also, she has always vomited very easily, particularly when she is upset or had some oral stimulation, such as a toothbrush. Regarding her play development, she enjoys arts and crafts kinds of activities and has an excellent attention span. She tries to color, but is just scribbling. She imitates chores at home and likes to be her tapper helper. She shows some capacity for imagination in her play, such as putting her stuffed animals in time out when they have been bad. As current examples of her speech development, they gave the examples of Susan saying things like Me go to park. Her communicative intent is good, she is able to relate an incident of something that they have not witnessed, and she has no inappropriate use of speech. She shares interests, is proud to show off her accomplishments, and points out things of interest. She has a strong positive social orientation. She is very interested in playing with other children, seeks them out, asks to have them over, and will spontaneously go and interact with other children in a play situation. She has also shown the capacity to be empathetic. She does not have any unusual fears or sensory aversions, other than typical ones, such as dogs and horses. The family consists of both parents, Susan and her 7 and 3-year-old sisters, about whom there are no concerns. Francoise reports a personal history of having been slow to talk. Susan has a cousin who has what sounds from their description to be an Arnold-Chiari malformation. Otherwise, there is no family history of significance. There is no family history for mental retardation, autism spectrum disorders, or learning disorders. Heriberto is in the insurance field and Francoise is a biometry teacher. There were no problems with the , labor, or delivery. The labor was induced and the cord was around the neck, but it was extricated without difficulty, and Susan did fine as a . Her birthweight was 7 pounds 10 ounces. In the early year or two, she had a lot of recurrent ear infections, which were treated medically. She never did have to have tubes placed, and her hearing was checked several times and found to be normal. Review of systems was taken, and Susan has had no recent symptoms referable to the sensory systems, respiratory tract, cardiovascular system, gastrointestinal or genitourinary tracts. She was given a complete physical exam, and no abnormalities were noted. She was cooperative, cute, and likable. She interacted nicely with me, made good eye contact, and used speech for communicative purposes. Nothing about her behavior struck me as being particularly odd or eccentric. Her muscle tone is low side. Otherwise, examination of eyes, ears, mouth and throat, chest, heart, and neurological examination were all normal. In summary, from my perspective, Susan shows a pattern of a mild developmental delay, but I do not see her as having an autism spectrum disorder. There are no specific medical recommendations. I spent an hour and a half evaluating Susan. Edgar Pacheco M.D. Developmental-Cartridge Loading Operator [id number] P [id number] Electronically signed by Edgar Pacheco 12-14-2004 11:26:28 AM documented i n this encounter Plan of Treatment Not on filedocumented as of this encounter Visit Diagnoses Not on filedocumented in this encounter"
--- OUTSIDE RECORDS SUMMARY | ~2020-05-15 | XMS | Encounter Summary ---
Demographics + + + | Address | [address] | | | [place] [address] | + + + | Home Phone | | + + + | Preferred Language | Unknown | + + + | Marital Status | Single | + + + | Rastafari Affiliation | Unknown | + + + | Race | White | + + + | Ethnic Group | Not or | + + + Author + + + | Author | [facility] | + + + | Organization | [facility] | + + + | Address | Unknown | + + + | Phone | Unavailable | + + + Support + + + + + | Name | Relationship | Address | Phone | + + + + + | None None | ECON | Unknown | Unavailable | + + + + + | Heriberto Winter | ECON | [address] [facility] | | | | | [place] | | | | | [address] | | + + + + + Care Team Providers + +------+ + | Care Manager Inside Name | Role | Phone | + +------+ + PCP | Unavailable | + +------+ + Encounter Details +--------+ + + + + | Date | Type | Department | Care Team | Description | +--------+ + + + + | 09/12/ | Document-Sc | Health Information | Unknown . | | | 2017 | anned | Services [id number] | | | | | [address] | | | | | | Mailcode: [id number] | | | | | | [facility] | | | | | | [place], [place] | | | | | | [address] | | | | | | [phone] | | | +--------+ + + + [...]
--- OUTSIDE RECORDS SUMMARY | ~2020-05-15 | XMS | Encounter Summary ---
Demographics + + + | Address | [address] | | | [place] [address] | + + + | Home Phone [...] Author + + + | Author | [facility] | + + + | Organization | [facility] | + + + | Address [...] [place] | | | | | [address] | | + + + + + Care Team Providers + +------+ + | Care Spaghetti Machine Operator Name | Role | Phone [...] as of this encounter Progress Notes Interface, Tire Vulcanizer In - 04/02/2006 2:07 AM PDT [id number] 03/19/2006 03/19/2006 [id number] ARMIDA GONGORA N [id number] CLINIC DATE: 03/19/2006 CLINIC NAME: [facility] DISCIPLINE: Speech Language Pathology Susan Winter, a 5 year, 10 month old female, was seen today as part of an interdisciplinary assessment in the [facility]. Her mother Francoise and father Heriberto accompanied Susan to today's evaluation. Susan is currently in kindergarten at [employer]. She receives special education services at school (i.e., occupational therapy, physical therapy, and speech-language intervention). Here, she receives speech-language therapy twice a week, once in the classroom and once in a small group. Candis parent's report that they have concerns about Susan. They report that Susan seems to have fewer skills than her 4 year 9 month-old sister and that she doesn't do well socially, rarely playing with other children. Susan lives at home with her parents and two siblings. Please see the Pediatrics report for more information on Susan's , developmental and medical history. Behavior: Susan was a talkative little girl. She had excellent eye-gaze and utilized a variety of appropriate facial expressions during her visit today. She was impulsive, however and would often point to a picture or answer a question before directions were completed. On occasion, she would self-correct after directions had been repeated. Susan also tended to employ avoidance behaviors when asked to do things that were above her current skill level. It was necessary to employ positive reinforcement in order to encourage Susan's participation in the assessment. ASSESSMENT MEASURES: RECEPTIVE: To assess Susan's auditory comprehension and expressive communication, the Preschool Language Sacle-4 (PLS-4) was administered. The (PLS-4) is a norm-referenced assessment that evaluates a child's ability to understand and use language. On this test, the mean is 100 with a standard deviation of +/- 15. Average scores would fall in the range of 85 to 115. Today, Susan received a standard score in auditory comprehension of 78. This score falls within the 7th percentile. Her final scores for this portion of the assessment were much like that of a typically developing 4 year 9 month old child. Susan's skills were scattered in this area. She ordered pictures from smallest to largest on one occasion, she demonstrated understanding of the quantitative concept each and correctly added and subtracted numbers to five on two out of three chances. Susan did not display mastery of understanding noun + two modifying adjectives (i.e., Point to the big white dog). Nor did she exhibit mastery of understanding quantity concepts five, or half, or passive voice sentences (i.e., Now look at all the pictures. Show me: The dog was chased by the chicken.), or the time/sequence concept of first. EXPRESSIVE: The PLS-4 was also administered in order to assess Susan's expressive communication. Due to decreased compliance, Susan did not complete the normal amount of criterions usually needed to create a ceiling. Instead of the five wrong answers usually needed to make up a ceiling, we stopped after one wrong answer in the 66-71 month-old range. However, after talking with her parents and by what was observed today, this clinician feels confident that Susan had met her ceiling. Taking this into consideration, Susan achieved a standard score of 79, which places her in the 8th percentile of her typically developing peers. Her final scores for this portion of the assessment were much like that of a typically developing 4 year 3 month old child. Susan was social and talkative. Her utterances were approximately 1-10 words in length. She spontaneously asked questions (e.g., "What's this"; "Can I see what else is in here?"; "Why him here today?") and also frequently responded to questions. She did have grammatical errors within her sentences (e.g., pronouns, morphological markers, past tense forms). Today, however, she was observed naming items that fit into a category (e.g., Tell me all the different kind of foods you can think of), but did not name categories (e.g., blocks, doll, ball, puzzle). She did describe similarities (e.g., How are a bird and airplane alike? Her reply: "Them fly."). Susan did not exhibit understanding of analogies (e.g., I sit on a chair. I sleep on a, Her response: high chair). She responded to why questions by responding with several sentences that did not exactly answer the questions. In addition, she did not show mastery of repeating sentences, however she did repeat two sentences correctly. Susan's parent's reported that our observations of Susan today were consistent with how she performs at home. ARTICULATION: Calebs articulation was not formally assessed today. She was observed, however to produce accurate productions of sounds /m/, /n/, /ng/, /h/, /w/, /j/, /p/, /b/, /t/, /k/, /g/, /f/, /s/, /sh/, /ch/, and /dz/. She did present with phonological errors including cluster reduction (e.g., "snake" became "sake"), and gliding (e.g., "long" became "brower", "rabbit" became "wabbit"). She also substituted the /t/ sound for unvoiced /th/, (e.g., "bath" became "bat") and the /d/ sound for voiced /th/ (e.g., "that" became "tiff"). 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 Susan should continue with her current IEP including services from Speech, Occupational Therapy and Physical Therapy. 2. The family should consider a chromosome test for Fragile X syndrome. (See Pediatric Report) 3. The family should explore all social activities for Susan. This will be helpful to her in her development, especially pragmatic skills. 4. It would be appropriate for Susan's family to again look into private speech-language services. Stacie Mat of the [facility], is a possible contact for them to find a private speech-language pathologist in their community. Her work phone number is [phone]. 5. Please see other reports for further recommendations. Maryjane Melton MS, CFY-CRM MARKETING EXECUTIVE Speech-Language Pathology Fellow I was present during this evaluation and I agree with the findings and recommendations contained in this report. Avelino Ruiz, Ph.D., CCC-CRM MARKETING EXECUTIVE Speech-Language Pathologist DA/ac1 P cc: Electronically signed by Avelino Ruiz 04-01-2006 10:40:20 AM documented i n this encounter Plan of Treatment Not on filedocumented as of this encounter Visit Diagnoses Not on filedocumented in this encounter
--- OUTSIDE RECORDS SUMMARY | ~2020-05-15 | XMS | Encounter Summary ---
Demographics + + + | Address | [address] | | | [place] [address] | + + + | Home Phone | | + + + | Preferred Language | Unknown | + + + | Marital Status | Single | + + + | Lutheran Affiliation | Unknown | + + + | Race | White | + + + | Ethnic Group | Not or | + + + Author + + + | Author | [facility] | + + + | Organization | [facility] | + + + | Address | Unknown | + + + | Phone | Unavailable | + + + Support + + + + + | Name | Relationship | Address | Phone | + + + + + | None None | ECON | Unknown | Unavailable | + + + + + | Heriberto Winter | ECON | [address] [facility] | | | | | [place] | | | | | [address] | | + + + + + Care Team Providers + +------+ + | Care Cardiopulmonary Technologist Chief Name | Role | Phone | + [...] as of this encounter Progress Notes Interface, Wine Cellar Worker In - 06/17/2005 1:01 AM [facility] [id number] 12/07/2004 12/07/2004 [id number] [facility] Date: 12/07/2004 Clinic Name Autism Discipline Developmental Pediatrics Susan is a 4-1/2-year-old little girl from [place] who was referred by her regular sign language instructor, Dr. Addison, for evaluation of her development. She was accompanied by her parents, Heriberto and Francoise, who were interviewed. The parents report that neither they nor Dr. Addison have been terribly concerned about autism in Susan, though they can see a few characteristics. They are more concerned about her general development being mildly slow. She was recently evaluated at the local education service [facility] and found to have mildly depressed developmental scores, both in cognitive and speech and language areas. Previously, on two occasions, when she was 24 and 30 months old, she had evaluations for [employer] Special Education services and was found ineligible because she did not have enough of a delay. The more recent testing found her to qualify, and she has begun [employer] services and been attending them [...] at home and likes to be her rug inspector helper. 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 There were no problems with the [...] a half evaluating Susan. Edgar Pacheco M.D. Developmental-Hazardous Materials Analyst [id number] P [id number] Electronically signed by Edgar Pacheco 12-14-2004 11:26:28 AM documented i n this encounter Plan of Treatment Not on filedocumented as of this encounter Visit Diagnoses Not on filedocumented in this encounter"
--- OUTSIDE RECORDS SUMMARY | ~2020-05-15 | XMS | Encounter Summary ---
Demographics + + + | Address | [address] | | | [place] [address] | + + + | Home Phone | | + + + | Preferred Language | Unknown | + + + | Marital Status | Single | + + + | Synagogue Affiliation | Unknown | + + + | Race | White | + + + | Ethnic Group | Not or | + + + Author + + + | Author | [facility] | + + + | Organization | [facility] | + + + | Address | [...] [place] | | | | | [address] | | + + + + + Care Team Providers + +------+ + | Care Cut Out Machine Operator Name | Role | Phone [...] as of this encounter Progress Notes Interface, Medical Laboratory Technologist In - 03/25/2006 2:04 AM PDT [id number] ARMIDA GONGORA N [id number] Clinic Date: 03/19/2006 Clinic Name: [facility] Discipline: Neurodevelopmental Pediatrics Susan is a 5-year 52-cnubd-dti girl from [place] who was referred by her physician there, Dr. Camille Addison. Susan was accompanied by both parents who provide an excellent history. This girl is globally developmentally delayed, and the referral questions revolve around the progress she has made in the last few years and whether she has a specific diagnosis. 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 This was about a year ago. Through that program she gets speech therapy, OT, and PT. She is in a kindergarten classroom and is quite far behind. The expectation is to promote her into first grade and then hold her back for a second year in first grade in order to catch up a little. Her school program is at [employer] where she has an IEP. Susan was [...] does know bigger/smaller. She can copy a [place] and a very marginal cross but does [...] Nava M.D. Neurodevelopmental Pediatrics PB / HS [id number] / [id number] / [id number] / cc: Mr. and Mrs. Heriberto Addison Electronically signed by Balod Nava 03-24-2006 01:36:40 PM documented i n this encounter Plan of Treatment Not on filedocumented as of this encounter Visit Diagnoses Not on filedocumented in this encounter"
--- OUTSIDE RECORDS SUMMARY | ~2020-05-15 | XMS | Encounter Summary ---
Demographics + + + | Address | [address] | | | [place] [address] | + + + | Home Phone [...] Author + + + | Author | [facility] | + + + | Organization | [facility] | + + + | [...] | Heriberto Winter | ECON | [address] [facility] | | | | | [place] | | | | | [address] | | + + + + + Care Team Providers + +------+ + | Care Resolution Expert Name | Role | Phone | + +------+ + PCP | Unavailable | + +------+ + Encounter Details +--------+ + + + + | Date | Type | Department | Care Team | Description | +--------+ + + + + | 09/12/ | Document-Sc | Health Information | Unknown . | | | 2017 | anned | Services [id number] | | | | | [address] | | | | | | Mailcode: OP17A | | | | | | [facility] | | | | | | [place], [place] | | | | | | [address] | | | | | | [phone] | | | +--------+ + + + [...]
--- OUTSIDE RECORDS SUMMARY | ~2020-05-15 | XMS | Encounter Summary ---
Demographics + + + | Address | [address] | | | [place] [address] | + + + | Home Phone | | + + + | Preferred Language | Unknown | + + + | Marital Status | Single | + + + | Sabianism Affiliation | Unknown | + + + | Race | White | + + + | Ethnic Group | Not or | + + + Author + + + | Author | [facility] | + + + | Organization | [facility] | + + + | Address [...] [place] | | | | | [address] | | + + + + + Care Team Providers + +------+ + | Care Thermoscrew Operator Name | Role | Phone | + +------+ + | Camille Addison MD | PCP | | + +------+ + Encounter Details +--------+ + + + + | Date | Type | Department | Care Team | Description | +--------+ + + + + | 01/17/ | Ancillary | [facility] [address] | | | | 2005 | [address] | [address] | | | | | marycarmen | [place]arlene | | | | | | [facility], | | | | | | [address] [facility] | | | | | | [place], [place] | | | | | | [address] | | | | | | [phone] | | | +--------+ + + + [...]
--- OUTSIDE RECORDS SUMMARY | ~2020-05-15 | XMS | Encounter Summary ---
Demographics + + + | Address | [address] | | | [place] [address] | + + + | Home Phone | | + + + | Preferred Language | Unknown | + + + | Marital Status | Single | + + + | Hoahaoism Affiliation | Unknown | + + + | Race | White | + + + | Ethnic Group | Not or | + + + Author + + + | Author | [facility] | + + + | Organization | [facility] | + + + | Address | Unknown | + + + | Phone | Unavailable | + + + Support + + + + + | Name | Relationship | Address | Phone | + + + + + | None None | ECON | Unknown | Unavailable | + + + + + | Heriberto Winter | ECON | [address] [facility] | | | | | [place] | | | | | [address] | | + + + + + Care Team Providers + +------+ + | Care District Loss Prevention Manager Name | Role | Phone | [...] as of this encounter Progress Notes Interface, Radio Mechanic Helper In - 06/17/2005 12:44 AM PDT [id number] 12/07/2004 12/07/2004 [id number] ARMIDA Jara CLINIC DATE:12/07/2004 CLINIC: AUTISM CLINIC DISCIPLINE: PSYCHOLOGY REFERRAL AND BACKGROUND INFORMATION: Susan Winter, a 4-year, 7-month-old girl, was seen today by psychology as part of the interdisciplinary [facility] ([facility]). Her mining professionals, Dr. Camille Addison M.D., referred Susan and [...] an Individualized Family Service Plan at the [facility]. Her special education eligibility is [...] a year), when she has a new game breeding farm manager or some other large novel event occurs. She has difficulty organizing her speech. She usually pieces together phrases (i.e, me go to park or I go see Sharon). In addition, Susan can ask questions repetitively for extended periods of time. Susan can be impulsively aggressive on occasion. PROCEDURES USED: Autism Diagnostic Observation Schedule (ADOS). Autism Screening Inventory for Educational Planning (ASIEP-II). Silvis Adaptive Behavior Scales - Interview Edition (VABS). [place] Autism Rating Scale (GARS). Child Behavior Checklist [...] on information provided by Susan's parent in [id number] interview, the DSM-IV diagnostic criteria for autism [...] assessment, Susan was seen by the developmental mining professionals. The doctor noted a normal neurological and physiological examination. DIAGNOSES: Brandt I Receptive Language Disorder Brandt II Global Developmental Delay Brandt III Normal physical and neurological exam Brandt IV Attention and impulsive difficulties, regulatory sensitivities Brandt V Current global assessment of functionin. RECOMMENDATIONS: 1. Susan appears to be very appropriately placed in an [employer] Special Education classroom. She will also benefit [...] service may not be possible through the [employer], and Ms. Winter should strongly [...] not know of such a professional in [place], but if the parents are interested in coming to [place], perhaps this summer, we would recommend working with Jd Garcia, Ph.D. here at [facility]. The parents should contact me directly if they are interested at [phone]. 5. Susan should be referred to the [facility] Developmental Disabilities Program in order to determine whether she qualifies for services through them. This could serve as a resource to identify appropriate local services and advocacy. 6. Additional information about regulatory issues can be found on the Internet at www.Applied StemCell.org. The parents may also benefit from reading the book, Raising Your Spirited Child by Loan Marroquin. 7. Susan would benefit from a reevaluation of her developmental and behavioral status following her kindergarten year. We would be happy to provide this evaluation at parent request. To begin this intake process, please call the market research coordinator at . Hannah Marin, Ph.D. Linden Toro, Ph.D. Psychology Resident Psychologist I was present for this evaluation and participated in critical portions of the assessment and report writing. I agree with the diagnoses and recommendations. Linden Toro, Ph.D. Psychologist WD/x64 P [id number] c: 12/15/04 wmd C: 12/22/04 dms Electronically signed by Linden Toro 12-22-2004 12:54:57 PM documented i n this encounter Plan of Treatment Not on filedocumented as of this encounter Visit Diagnoses Not on filedocumented in this encounter"
--- OUTSIDE RECORDS SUMMARY | ~2020-05-15 | XMS | Encounter Summary ---
Demographics + + + | Address | [address] | | | [place] [address] | + + + | Home Phone | | + + + | Preferred Language | Unknown | + + + | Marital Status | Single | + + + | Sikh Affiliation | Unknown | + + + | Race | White | + + + | Ethnic Group | Not or | + + + Author + + + | Author | [facility] | + + + | Organization | [facility] | + + + | Address [...] [place] | | | | | [address] | | + + + + + Care Team Providers + +------+ + | Care Wire Coiler Machine Operator Name | Role | Phone [...] | | | Procedures | PEDS | [facility] | | | | | | SPECIALISTS | Darlene | | | | | PDS,PSYCH,OT | [facility] [place] | Children's | | | | | ,SP/HK | [address] | [facility] | | | | | | [address] | floor | | | | | | [address] | [place], [place] | | | | | | [place], | [address] | | | | | | [place] [address] | Phone: | | | | | | Phone: | [phone] | | | | | | [phone] | Fax: | | | | | | Fax: | [phone] | | | | | | [phone] | | +--------+--------+ + + + + Encounter Details +--------+ + + + + | Date | Type | Department | Care Team | Description | +--------+ + + + + | 03/19/ | Office | [facility] at [facility] 700 | Maryjane Ocasio OT | | | 2005 | Visit-ECX | [facility] | [address] | | | | | [place]ene | [facility] | | | | | [facility], | [place] [address] | | | | | [address] [place] [address] | [phone] | | | | | [place], [place] | | | | | | [address] | | | | | | [phone] | | | +--------+ + + + [...]
--- OUTSIDE RECORDS SUMMARY | ~2020-05-15 | XMS | Encounter Summary ---
Demographics + + + | Address | [address] | | | [place] [address] | + + + | Home Phone [...] [place] | | | | | [address] | | + + + + + Care Team Providers + +------+ + | Care Research Center Partner Name | Role | Phone | + [...] | | | Procedures | PEDS | [facility] | | | | | | SPECIALISTS | [place]arlene | | | | | PDS,PSYCH,OT | [facility] [place] | Children's | | | | | ,SP/HK | [address] | [facility] | | | | | | [address] | floor | | | | | | [address] | [place], [place] | | | | | | [place], | [address] | | | | | | [place] [address] | Phone: | | | | | | Phone: | [phone] | | | | | | [phone] | Fax: | | | | | | Fax: | [phone] | | | | | | [phone] | | +--------+--------+ + + + + Encounter Details +--------+ + + + + | Date | Type | Department | Care Team | Description | +--------+ + + + + | 03/19/ | Office | [facility] at [facility] 700 | Maryjane Ocasio OT | | | 2005 | Visit-ECX | [facility] | [address] | | | | | Darlene | [facility] | | | | | [facility], | [place] [address] | | | | | [address] [place] [address] | [phone] | | | | | [place], [place] | | | | | | [address] | | | | | | [phone] | | | +--------+ + + + [...]
--- OUTSIDE RECORDS SUMMARY | ~2020-05-15 | XMS | Encounter Summary ---
Demographics + + + | Address | [address] | | | [place] [address] | + + + | Home Phone | | + + + | Preferred Language | Unknown | + + + | Marital Status | Single | + + + | Hinduism Affiliation | Unknown | + + + | Race | White | + + + | Ethnic Group | Not or | + + + Author + + + | Author | [facility] | + + + | Organization | [facility] | + + + | [...] [place] | | | | | [address] | | + + + + + Care Team Providers + +------+ + | Care Supervisor Carbon Electrodes Name | Role | Phone | + +------+ + | Camille Addison MD | PCP | | + +------+ + Encounter Details +--------+ + + + + | Date | Type | Department | Care Team | Description | +--------+ + + + + | 01/17/ | Ancillary | [facility] at [facility] 700 | | | | 2005 | Registrzraiao | [address] | | | | | marycarmen | Darlene | | | | | | [facility], | | | | | | [facility] | | | | | | [place], [place] | | | | | | [address] | | | | | | [phone] | | | +--------+ + + + [...]
--- OUTSIDE RECORDS SUMMARY | ~2020-05-15 | XMS | Clinical Summary ---
Demographics + + + | Address | [address] | | | [place] [address] | + + + | Home Phone [...] Heriberto Winter | ECON | [address] [facility] | | | | | [place] | | | | | [address] | | + + + + + Care Team Providers + +------+ + | Care Warehouse Processor Name | Role | Phone | + +------+ + PCP | Unavailable | + +------+ + Source Comments ALYSSA is fully live on both [facility] Ambulatory and [facility] InPatient.[facility] Allergies No Known Allergies Medications Not on [...] recent travel history available. | + + Last Filed Vital Signs + [...] | 9 | | | + + + + + | Pneumococcal | Aged Out | | No longer eligible | | vaccination | | | based on patient's | | | | | age to complete this | | | | | topic | + + + + + Results [...] CROSS BLUE | REGENC | xxxxxxxxxxx | 02/20/20 | [phone] | [address] | PPO | | SHIELD | E BCBS | xxx | 18-Pre | 8 | [address] | | | | | | sent | | [place], | | | | | | | | [place] | | | | | | | | [address] | | + +--------+ +--------+ + +------+ [...] | | al/Fam | | 1970 | [phone] | [place] [address] | | | vimal | | | 3 (Home) | | | | | | | [phone] | | | | | | | 1 (Work) | | + +--------+ +--------+ + +
--- OUTSIDE RECORDS SUMMARY | ~2020-05-15 | XMS | Encounter Summary ---
Demographics + + + | Address | [address] | | | [place] [address] | + + + | Home Phone | | + + + | Preferred Language | Unknown | + + + | Marital Status | Single | + + + | Confucianist Affiliation | Unknown | + + + | Race | White | + + + | Ethnic Group | Not or | + + + Author + + + | Author | [facility] | + + + | Organization | [facility] | + + + | Address [...] [place] | | | | | [address] | | + + + + + Care Team Providers + +------+ + | Care Crisis Manager Name | Role | Phone | [...] as of this encounter Progress Notes Interface, Therapist Radiation In - 04/02/2006 2:07 AM PDT [id number] 03/19/2006 03/19/2006 [id number] ARMIDA GONGORA N [id number] CLINIC DATE: 03/19/2006 CLINIC NAME: [facility] Child Development [facility] DISCIPLINE: Speech Language Pathology Susan Winter, a 5 year, 10 month old female, was seen today as part of an interdisciplinary assessment in the [facility]. Her mother Francoise and father Heriberto accompanied Susan to today's evaluation. Susan is currently in kindergarten at [employer]. She receives special education services [...] private speech-language services. Stacie Mat of the [facility], is a possible contact for them to find a private speech-language pathologist in their community. Her work phone number is [phone]. 5. Please see other reports for further recommendations. Maryjane Melton MS, CFY-[facility] Speech-Language Pathology Fellow I was present during this evaluation and I agree with the findings and recommendations contained in this report. Avelino Ruiz, Ph.D., CCC-[facility] Speech-Language Pathologist DA/ac1 P cc: Electronically signed by Avelino Ruiz 04-01-2006 10:40:20 AM documented i n this encounter Plan of Treatment Not on filedocumented as of this encounter Visit Diagnoses Not on filedocumented in this encounter
--- OUTSIDE RECORDS SUMMARY | ~2020-05-15 | XMS | Clinical Summary ---
Demographics + + + | Address | [address] | | | [place] [address] | + + + | Home Phone | | + + + | Preferred Language | Unknown | + + + | Marital Status | Single | + + + | Orthodox Affiliation | Unknown | + + [...] Heriberto Winter | ECON | [address] [facility] | | | | | [place] | | | | | [address] | | + + + + + Care Team Providers + +------+ + | Care Lift Slab Operator Name | Role | Phone | + +------+ + PCP | Unavailable | + +------+ + Source Comments ALYSSA is fully live on both [facility] Ambulatory and [facility] InPatient.[facility] Allergies No Known Allergies Medications Not [...] | REGENC | xxxxxxxxxxx | 02/20/20 | [phone] | [address] | PPO | | SHIELD | E BCBS | xxx | 18-Pre | 8 | [address] | | | | | | sent | | [place], | | | | | | | | [place] | | | | | | | | [address] | | + +--------+ +--------+ + +------+ [...] | 1970 | [phone] | [place] [address] | | | vimal | | | 3 (Home) | | | | | | | [phone] | | | | | | | 1 (Work) | | + +--------+ +--------+ + +
--- OUTSIDE RECORDS SUMMARY | ~2020-05-15 | XMS | Encounter Summary ---
Demographics + + + | Address | [address] | | | [place] [address] | + + + | Home Phone [...] Author + + + | Author | [facility] | + + + | Organization | [facility] | + + + | Address [...] [place] | | | | | [address] | | + + + + + Care Team Providers + +------+ + | Care Headlight Assembler Name | Role | Phone | + [...] as of this encounter Progress Notes Interface, Store Protection Specialist In - 03/29/2006 2:07 AM PDT [id number] 03/19/2006 03/19/2006 [id number] ARMIDA GONGORA N [id number] CLINIC DATE: 03/19/2006 CLINIC NAME: CHILD DEVELOPMENT DISCIPLINE: PSYCHOLOGY IDENTIFYING INFORMATION: Susan Winter, a 5 year 10 month old girl, was seen by Psychology as part of a multidisciplinary evaluation through the Child Development Clinic. Susan was referred by her lunch counter manager Dr. Addison due to concerns about developmental delay. Susan was also seen by the developmental lunch counter manager, certified medical coder, and speech/language pathologist at today's appointment. For [...] history was not taken by the present underwriter mortgage loan. The reader is referred to the Developmental Pediatrics consultation by Baldo Nava completed as part of the multidisciplinary evaluation. Briefly, Susan's history was unremarkable although she had frequent ear infections as a young child. She has previously been diagnosed as having Global Developmental Delay and there have been concerns about regulatory issues. She is currently in kindergarten at [employer] in [place], [place]. She has difficulty making friends and had behavioral problems until roughly a year ago. Susan lives with her parents and sisters, ages 9 and 4. Her parents indicate that she is enthusiastic about life, caring, loving, and funny. At home she enjoys playing with paint, playdough, and water. PREVIOUS EVALUATIONS: Susan had previously been seen by the Autism Clinic at the [facility]. Results from that evaluation on 12/07/2004 suggest [...] this diagnosis please refer to the developmental lunch counter manager's report. 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 As Dr. Ruiz was case operator, please see his report for detailed assessment [...] website may be useful in this regard: [email or web address]/health/mentalhealth/develop_index.asp and Ms. Winter is encouraged to refer Susan to the [facility] Developmental Disabilities Program in order to secure a director of casework department who can help find additional services and serve as an advocate. and Ms. Winter is also encouraged to contact the local Social Security Administration office regarding Supplemental Security Income (SSI) eligibility (disability benefits). For additional information please call [phone]. 3.Organizations such as the [facility] [facility] ([phone]) and [employer] (www.[employer]Altimet, ) may be additional sources for support and assistance. 4.Outside activities that boost Susan's self-esteem and allow her to demonstrate her strengths should be encouraged. These high-energy activities provide temporary escapes from stresses and academics, help maintain self-esteem, and help to engage her in positive interactions with others. Activities could include after-school clubs, sports, [employer] Girls Club, Girl Process Excellence Manager (http://www.girlscouts.org/), martial arts, etc. Also, consider technology or workshop courses that build on Susan's strengths. 5. and Ms. Winter might check with the local [facility] Vargas and Recreation Program for appropriate classes. For example, [facility] and [employer] [facility] reportedly has swimming classes in which extra [...] To schedule an IEP partner please contact [phone]. 10.Susan would benefit from a reevaluation of her behavioral and educational status in approximately 1-2 years to document her continued progress. We would be happy to provide that evaluation, if requested. If interested at that time, the family is encouraged to contact our employee wellness/fitness coordinator at [phone]. 11.The results of this evaluation should be [...] please refer to Dr. Ruiz's report. The [facility] recognizes that it is the responsibility of [...] ranscription In - 03/27/2006 2:10 AM PDT [id number] 01/17/2006 03/19/2006 [id number] ARMIDA GONGORA N [id number] CLINIC DATE: 03/19/2006 CLINIC NAME: CHILD DEVELOPMENT - LEND DISCIPLINE: SOCIAL WORK Susan is 5 years old and lives in [place], [place] with her parents, Kashif and Francoise. She has two sisters, Kirby, age 9, and Lazara, age 4 years. She is referred to our clinic by her lunch counter manager, Camille Addison MD, in [place]. This girl had been evaluated in our [...] 2 years. The mother, Laurence, is a mmi teacher, and the father, Kashif, works in the [employer] field. They have lived in [place] for about 9 years and have no extended family in the area. They have been for 10 years. Laurence is from [place], and Kashif is from [place] [facility] [place]. They do like the [place] area and have support from friends and also from their caodaism. Both parents did well in school, and [...] X testing, be completed through the primary lunch counter manager's office. She should continue on her IEP as well and include a social skills group. For further recommendations, please refer to the report of the case operator, Avelino Ruiz, PhD, Speech and Language Pathologist. Loni Purvis LCSW [facility]/esm P cc: Electronically signed by Loni Purvis 03-26-2006 10:31:25 AM documented i n this encounter Plan of Treatment Not on filedocumented as of this encounter Visit Diagnoses Not on filedocumented in this encounter
--- OUTSIDE RECORDS SUMMARY | ~2020-05-15 | XMS | Encounter Summary ---
Demographics + + + | Address | [address] | | | [place] [address] | + + + | Home Phone [...] Author + + + | Author | [facility] | + + + | Organization | [facility] | + + + | Address | Unknown | + + + | Phone | Unavailable | + + + Support + + + + + | Name | Relationship | Address | Phone | + + + + + | None None | ECON | Unknown | Unavailable | + + + + + | Heriberto Winter | ECON | [address] [facility] | | | | | [place] | | | | | [address] | | + + + + + Care Team Providers + +------+ + | Care Director Of Religious Activities Name | Role | Phone | + [...] as of this encounter Progress Notes Interface, Residential Leasing Manager In - 06/17/2005 12:44 AM [facility] [id number] 12/07/2004 12/07/2004 [id number] ARMIDA Jara Clinic Date: 12/07/2004 CLINIC NAME: [facility] [place] [facility] DISCIPLINE: OCCUPATIONAL THERAPY BACKGROUND INFORMATION: [...] program three days per week through the [facility]. She receives speech therapy two times per [...] percentile rank of 1. On the Visual Information Security Specialist Scale, she obtained a T-score of 29 [...] that she understands the concept of the green party. At daycare, she has had some [...] appears to be appropriately placed in an hydrological technical officer special education classroom. She will also benefit [...] service may not be possible through the [facility], parents should strongly consider additional services in [...] not know of such a professional in [place], but if the parents are interested in coming to [place], perhaps this summer, we would recommend working with Dr. Jd Garcia, [facility] at [facility]. 5. Susan should be referred to the [facility] Developmental Disabilities Program in order to determine whether she qualifies for services through them. 6. Additional information about regulatory issues can be found on the Internet at www.ConnectFu.Tribogenics. Parents may also benefit from reading the book, Raising Your Spirited Child , by Loan Keithteri Marroquin. 7. Susan would benefit from a reevaluation of her developmental and behavioral status following her kindergarten year. We would be happy to provide this evaluation at parent request. To begin this intake process, please call the inside sales coordinator at [phone]. I appreciated the opportunity to meet and work with Susan and her family. If there are any questions or concerns regarding this report, please free to contact this therapist at [phone]. Annie Cruz/laron P [id number] cc: Electronically signed by Jud Gaines 01-02-2005 04:40:13 PM documented i n this encounter Plan of Treatment Not on filedocumented as of this encounter Visit Diagnoses Not on filedocumented in this encounter"
--- OUTSIDE RECORDS SUMMARY | 2020-05-15 11:28 | XMS ---
PreManage Notification: ROLAN HUFFMAN Security Printed Products Assembler Events No recent Security Events currently on file CRITERIA MET - [facility] - Has Care Guidelines CARE PROVIDERS MELONIE REDDY Internal Medicine: Pulmonary Disease 03/16/2019-Current PHONE: Unknown Guidelines Source: [facility] Guidelines Date: 03/16/2019 Care Coordination: Currently engaged in mental health services with [employer].\T\nbsp; Please contact [employer] with mental health concerns.\T\nbsp; [facility]: \T\nbsp; [phone]\T\nbsp; [place]:\T\nbsp; [phone]. Care History Medical/Surgical 03/16/2019 [facility] - Patient is currently established with [facility]. If patient is seen in the ED during business hours. Please contact [facility] at [facility]. Care Recommendation: This patient has had 5 [...] known visits. ED/UCC VISIT TRACKING (12 MO.) 05/15/2020 11:26 [facility] [place] TYPE: Emergency COMPLAINT: - FEVER, COUGH, SORE THROAT 12/17/2019 17:26 [facility] [place] TYPE: Emergency COMPLAINT: - MEDICAL CLEARANCE DIAGNOSES: - Encounter for other general examination - Other care home (current) drug therapy - Nicotine dependence, unspecified, uncomplicated - Major depressive disorder, single episode, unspecified - Suicidal ideations - Anxiety disorder, unspecified INPATIENT VISIT TRACKING (12 MO.) No inpatient visits to display in this time frame [id number]
== END 2020-05-15 12:00 | disposition home or self-care (01) ==
LOC: ED 11:26
DX: J02.9 Acute pharyngitis, unspecified (principal)

== ENCOUNTER 2020-07-22 13:42 | Emergency (ER) | payer OTHER ==
[~2020-07-22] VITALS: Ht 167.6 cm; Wt 117.0 kg
--- OUTSIDE RECORDS SUMMARY | ~2020-07-22 | XMS | Encounter Summary ---
Demographics + + + | Address | [address] | | | [place] [address] | + + + | Home Phone | | + + + | Preferred Language | Unknown | + + + | Marital Status | Single | + + + | Cheondoism Affiliation | Unknown | + + + | Race | White | + + + | Ethnic Group | Not or | + + + Author + + + | Author | [facility] | + + + | Organization | [facility] | + + + | Address | Unknown | + + + | Phone | Unavailable | + + + Support + + + + + | Name | Relationship | Address | Phone | + + + + + | None None | ECON | Unknown | Unavailable | + + + + + | Heriberto Winter | ECON | [address] | | | | | [place] | | | | | [address] | | + + + + + Care Team Providers + +------+ + | Care Automotive Parts Counterperson Name | Role | Phone | + +------+ + | Camille Addison MD | PCP | | + +------+ + Encounter Details +--------+ + + + + | Date | Type | Department | Care Team | Description | +--------+ + + + + | 01/17/ | Ancillary | [facility] at [facility] [address] | | | | 2005 | Reg[address] | [address] | | | | | marycarmen | Darlene | | | | | | [facility], | | | | | | [facility] [facility] | | | | | | [place], [place] | | | | | | [address] | | | | | | [phone] | | | +--------+ + + + [...] on file | | + + + documented as of this encounter Plan of Treatment Not on filedocumented as of this encounter Visit Diagnoses Not on filedocumented in this encounter"
--- OUTSIDE RECORDS SUMMARY | ~2020-07-22 | XMS | Encounter Summary ---
Demographics + + + | Address | [address] | | | [place] [address] | + + + | Home Phone | | + + + | Preferred Language | Unknown | + + + | Marital Status | Single | + + + | Muslim Affiliation | Unknown | + + + | Race | White | + + + | Ethnic Group | Not or | + + + Author + + + | Author | [facility] | + + + | Organization | [facility] | + + + | Address | [...] [place] | | | | | [address] | | + + + + + Care Team Providers + +------+ + | Care College Sports Assistant Name | Role | Phone | + +------+ + | Camille Addison MD | PCP | | + +------+ + Reason for Visit Consultation (Routine) +--------+--------+ + + + + | Status | Reason | Specialty | Diagnoses / | Referred By | Referred To | | | | | Procedures | Contact | Contact | +--------+--------+ + + + + | Closed | | | Diagnoses | [place], | Cdr Autism | | | | | AUT EVAL/HK | Camille Berg MD | [address] | | | | | Procedures | PEDS | [facility] | | | | | | SPECIALISTS | [place]ene | | | | | PDS,PSYCH,OT | [facility] [place] | Children's | | | | | ,SP/HK | [address] | [facility] | | | | | | [address] | floor | | | | | | [address] | [place], [place] | | | | | | [place], | [address] | | | | | | [place] [address] | Phone: | | | | | | Phone: | [phone] | | | | | | [phone] | Fax: | | | | | | Fax: | [phone] | | | | | | [phone] | | +--------+--------+ + + + + Encounter Details +--------+ + + + + | Date | Type | Department | Care Team | Description | +--------+ + + + + | 03/19/ | Office | [facility] at [facility] [address] | Maryjane Ocasio OT | | | 2005 | Visit-ECX | [facility] | [address] | | | | | [place] | [facility] | | | | | [facility], | [place] [address] | | | | | [address] [place] [address] | [phone] | | | | | [place], [place] | | | | | | [address] | | | | | | [phone] | | | +--------+ + + + [...] + + documented as of this encounter Last Filed Vital Signs + + + + + | Vital Sign | Reading | Time Taken | Comments | + + + + + | Blood Pressure | 96/70 | 03/19/2006 8:20 AM | | | | | PDT | | + + + + + | Pulse | 90 | 03/19/2006 8:20 AM | | | | | PDT | | + + + + + | Temperature | - | - | | + + + + + | Respiratory Rate | - | - | | + + + + + | Oxygen Saturation | - | - | | + + + + + | Inhaled Oxygen | - | - | | | Concentration | | | | + + + + + | Weight | 25.7 kg (56 lb 10.5 | 03/19/2006 8:20 AM | | | | oz) | PDT | | + + + + + | Height | 118.3 cm (3' 10.57") | 03/19/2006 8:20 AM | | | | | PDT | | + + + + + | Body Mass Index | 18.37 | 03/19/2006 8:20 AM | | | | | PDT | | + + + + + documented in this encounter Plan of Treatment Not on filedocumented as of this encounter Visit Diagnoses Not on filedocumented in this encounter
--- OUTSIDE RECORDS SUMMARY | ~2020-07-22 | XMS | Clinical Summary ---
Demographics + + + | Address | [address] | | | [place] [address] | + + + | Home Phone | | + + + | Preferred Language | Unknown | + + + | Marital Status | Single | + + + | Denominational Affiliation | Unknown | + + + [...] | Heriberto Winter | ECON | [address] [facility] | | | | | [place] | | | | | [address] | | + + + + + Care Team Providers + +------+ + | Care Concrete Truck Driver Name | Role | Phone | + +------+ + PCP | Unavailable | + +------+ + Source Comments ALYSSA is fully live on both [facility] Ambulatory and [facility] InPatient.[facility] Allergies No Known Allergies Medications Not on file Active Problems + [...] | | + + + + + Plan of Treatment + + +-------+ + | Health Maintenance | Due Date | Last | Comments | | | | Done | | + + +-------+ + | Influenza (Flu) | | | | | vaccination (#1) | 9 | | | + + +-------+ + | Pneumococcal | Aged Out | | No longer eligible based on patient's age | | vaccination | | | to complete this topic | + + +-------+ + Results Not on filefrom Last 3 Months Insurance + +--------+ +--------+ + +------+ | Payer | Benefi | Subscriber | Effect | Phone | Address | Type | | | t Plan | ID | valdemar | | | | | | / | | Dates | | | | | | Group | | | | | | + +--------+ +--------+ + +------+ | BLUE CROSS BLUE | REGENC | | 02/20/20 | [phone] | [address] | PPO | | SHIELD | E BCBS | 104 | 18-Pre | 8 | 1106 | | | | | | sent | | [place], | | | | | | | | [place] | | | | | | | | [id number] | | + +--------+ +--------+ + +------+ + +--------+ +--------+ + + | Guarantor Name | Accoun | Relation to | Date | Phone | Billing Address | | | t Type | Patient | of | | | | | | | | | | + +--------+ +--------+ + + | KING WINTER | Person | Parent | [birth year] | [address] | | | al/Fam | | 1970 | [phone] | [place] [address] | | | vimal | | | 3 (Home) | | | | | | | [phone] | | | | | | | 1 (Work) | | + +--------+ +--------+ + +
--- OUTSIDE RECORDS SUMMARY | ~2020-07-22 | XMS | Encounter Summary ---
Demographics + + + | Address | [address] | | | [place] [address] | + + + | Home Phone | | + + + | Preferred Language | Unknown | + + + | Marital Status | Single | + + + | Druze Affiliation | Unknown | + + + | Race | White | + + + | Ethnic Group | Not or | + + + Author + + + | Author | [facility] | + + + | Organization | [facility] | + + + | Address | Unknown | + + + | Phone | Unavailable | + + + Support + + + + + | Name | Relationship | Address | Phone | + + + + + | None None | ECON | Unknown | Unavailable | + + + + + | Heriberto Winter | ECON | [address] [facility] | | | | | [place] | | | | | [address] | | + + + + + Care Team Providers + +------+ + | Care Terra Cotta Setter Name | Role | Phone | + [...] as of this encounter Progress Notes Interface, Malt Specifications Control Assistant In - 06/17/2005 12:44 AM PDT [id number] 12/07/2004 12/07/2004 [id number] APRYLDAKOTARIP SUSAN Estefani CLINIC DATE:12/07/2004 CLINIC: AUTISM CLINIC DISCIPLINE: PSYCHOLOGY REFERRAL AND BACKGROUND INFORMATION: Susan Hannadanielarip, a 4-year, 7-month-old girl, was seen today by psychology as part of the interdisciplinary [facility] ([facility]). Her lumber salvager, Dr. Camille Addison M.D., referred Susan and her family to the Autism Clinic because of ongoing concerns about her developmental and behavioral status. The child was accompanied to clinic today by her parents, Heriberto and Francoise Winter. Information below was obtained via review of [...] a history of reflux issues as an infant. The family noted that many of Susan's [...] an Individualized Family Service Plan at the [facility]. Her special education eligibility is [...] a year), when she has a new field foreman or some other large novel event occurs. She has difficulty organizing her speech. She usually pieces together phrases (i.e, me go to park or I go see Sharon). In addition, Susan can ask questions repetitively for extended periods of time. Susan can be impulsively aggressive on occasion. PROCEDURES USED: Autism Diagnostic Observation Schedule (ADOS). Autism Screening Inventory for Educational Planning (ASIEP-II). Gaylord Adaptive Behavior Scales - Interview Edition (VABS). Alpa Autism Rating Scale (GARS). Child Behavior Checklist [...] on information provided by Susan's parent in pkjb-dx-eybt interview, the DSM-IV diagnostic criteria for autism [...] socially interacting with her peers. and Ms. Wniter commented on their child's social communication abilities. [...] of household daily living tasks. and Ms. Winter also discussed Susan's difficulty with stereotyped and [...] as part of the [facility] of [place]. Results from standardized testing completed today suggest [...] assessment, Susan was seen by the developmental lumber salvager. The doctor noted a normal neurological and physiological examination. DIAGNOSES: [place] I Receptive Language Disorder [place] II Global Developmental Delay [place] III Normal physical and neurological exam [place] IV Attention and impulsive difficulties, regulatory sensitivities [place] V Current global assessment of functionin. RECOMMENDATIONS: 1. Susan appears to be very appropriately placed in an [employer] classroom. She will also benefit [...] service may not be possible through the [employer], and Ms. Winter should strongly [...] not know of such a professional in [place], but if the parents are interested in coming to [place], perhaps this summer, we would recommend working with Jd Garcia, Ph.D. here at [facility]. The parents should contact me directly if they are interested at [phone]. 5. Susan should be referred to the [facility] Developmental Disabilities Program in order to determine whether she qualifies for services through them. This could serve as a resource to identify appropriate local services and advocacy. 6. Additional information about regulatory issues can be found on the Internet at www.PowerStores.Movetis. The parents may also benefit from reading the book, Raising Your Spirited Child by Loan Keithteri Marroquin. 7. Susan would benefit from a reevaluation of her developmental and behavioral status following her kindergarten year. We would be happy to provide this evaluation at parent request. To begin this intake process, please call the technical services coordinator at . Hannah Marin, Ph.D. Linden Toro, Ph.D. Psychology Resident Psychologist I was present for this evaluation and participated in critical portions of the assessment and report writing. I agree with the diagnoses and recommendations. Linden Toro, Ph.D. Psychologist WD/x64 P [id number] c: 12/15/04 wmd C: 12/22/04 dms Electronically signed by Linden Toro 12-22-2004 12:54:57 PM documented i n this encounter Plan of Treatment Not on filedocumented as of this encounter Visit Diagnoses Not on filedocumented in this encounter"
--- OUTSIDE RECORDS SUMMARY | ~2020-07-22 | XMS | Encounter Summary ---
Demographics + + + | Address | [address] | | | [place] [address] | + + + | Home Phone | | + + + | Preferred Language | Unknown | + + + | Marital Status | Single | + + + | Judaism Affiliation | Unknown | + + + | Race | White | + + + | Ethnic Group | Not or | + + + Author + + + | Author | [facility] | + + + | Organization | [facility] | + + + | Address [...] [place] | | | | | [address] | | + + + + + Care Team Providers + +------+ + | Care Assistant Casino Shift Manager Name | Role | Phone | + [...] as of this encounter Progress Notes Interface, Property Handler In - 03/25/2006 2:04 AM PDT [id number] ARMIDA GONGORA N [id number] Clinic Date: 03/19/2006 Clinic Name: [facility] Discipline: Neurodevelopmental Pediatrics Susan is a 5-year 27-ccqyh-jpm girl from [place] who was referred by her physician there, Dr. Camille Addison. Susan was accompanied by both parents who provide an excellent history. This girl is globally developmentally delayed, and the referral questions revolve around the progress she has made in the last few years and whether she has a specific diagnosis. 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 This was about a year ago. Through that program she gets speech therapy, OT, and PT. She is in a kindergarten classroom and is quite far behind. The expectation is to promote her into first grade and then hold her back for a second year in first grade in order to catch up a little. Her school program is at [employer] where she has an IEP. Susan [...] does know bigger/smaller. She can copy a kletsel dehe wintun and a very marginal cross but does [...] Nava M.D. Neurodevelopmental Pediatrics PB / HS [id number] / [id number] / [id number] / cc: and Heriberto Anastacia Addison Electronically signed by Baldo Nava 03-24-2006 01:36:40 PM documented i n this encounter Plan of Treatment Not on filedocumented as of this encounter Visit Diagnoses Not on filedocumented in this encounter"
--- OUTSIDE RECORDS SUMMARY | ~2020-07-22 | XMS | Encounter Summary ---
Demographics + + + | Address | [address] | | | [place] [address] | + + + | Home Phone | | + + + | Preferred Language | Unknown | + + + | Marital Status | Single | + + + | Shinto Affiliation | Unknown | + + + | Race | White | + + + | Ethnic Group | Not or | + + + Author + + + | Author | [facility] | + + + | Organization | [facility] | + + + | Address [...] [place] | | | | | [address] | | + + + + + Care Team Providers + +------+ + | Care Regrinder Operator Name | Role | Phone | [...] as of this encounter Progress Notes Interface, Senior Partner In - 04/02/2006 2:07 AM PDT [id number] 03/19/2006 03/19/2006 [id number] ARMIDA GONGORA Estefani [id number] CLINIC DATE: 03/19/2006 CLINIC NAME: [facility] Child Development Clinic DISCIPLINE: Speech Language Pathology Susan Winter, a 5 year, 10 month old female, was seen today as part of an interdisciplinary assessment in the [facility]. Her mother Francoise and father Heriberto accompanied Susan to today's evaluation. Susan is currently in kindergarten at [employer]. She receives special education services [...] developing 4 year 9 month old child. Calebs skills were scattered in this area. She [...] with how she performs at home. ARTICULATION: Susan's articulation was not formally assessed today. She [...] again look into private speech-language services. Stacie Rivero of the [facility], is a possible contact for them to find a private speech-language pathologist in their community. Her work phone number is [phone]. 5. Please see other reports for further recommendations. Maryjane Melton, , CFY-EXHIBITIONS CURATOR Speech-Language Pathology Fellow I was present during this evaluation and I agree with the findings and recommendations contained in this report. Avelion Ruiz, Ph.D., CCC-EXHIBITIONS CURATOR Speech-Language Pathologist WILD/sahil P cc: Electronically signed by Avelino Ruiz 04-01-2006 10:40:20 AM documented i n this encounter Plan of Treatment Not on filedocumented as of this encounter Visit Diagnoses Not on filedocumented in this encounter
--- OUTSIDE RECORDS SUMMARY | ~2020-07-22 | XMS | Encounter Summary ---
Demographics + + + | Address | [address] | | | [place] [address] | + + + | Home Phone [...] Author + + + | Author | [facility] | + + + | Organization | [facility] | + + + | Address [...] [place] | | | | | [address] | | + + + + + Care Team Providers + +------+ + | Care Accounting Manager Name | Role | Phone | [...] as of this encounter Progress Notes Interface, Channeler Runner In - 03/29/2006 2:07 AM PDT [id number] 03/19/2006 03/19/2006 [id number] ARMIDA GONGORA Estefani [id number] CLINIC DATE: 03/19/2006 CLINIC NAME: CHILD DEVELOPMENT DISCIPLINE: PSYCHOLOGY IDENTIFYING INFORMATION: Susan Winter, a 5 year 10 month old girl, was seen by Psychology as part of a multidisciplinary evaluation through the Child Development Clinic. Susan was referred by her mattress stuffer Dr. Addison due to concerns about developmental delay. Susan was also seen by the developmental mattress stuffer, medical officer psychiatry, and speech/language pathologist at today's appointment. For [...] history was not taken by the present parts data writer. The reader is referred to the Developmental Pediatrics consultation by Baldo Nava completed as part of the multidisciplinary evaluation. Briefly, Susan's history was unremarkable although she had frequent ear infections as a young child. She has previously been diagnosed as having Global Developmental Delay and there have been concerns about regulatory issues. She is currently in kindergarten at [employer] in [place], [place]. She has difficulty making friends and had behavioral problems until roughly a year ago. Susan lives with her parents and sisters, ages 9 and 4. Her parents indicate that she is enthusiastic about life, caring, loving, and funny. At home she enjoys playing with paint, playdough, and water. PREVIOUS EVALUATIONS: Susan had previously been seen by the Autism Clinic at the [facility]. Results from that evaluation on 12/07/2004 [...] speech was notable for some articulation difficulty. Calebs legs were often in motion during the [...] this diagnosis please refer to the developmental mattress stuffer's report. 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 As Dr. Ruiz was correctional case manager, please see his report for detailed assessment team recommendations as well as specific recommendations: 1.We encourage the family to deliberately work on the development of Calebs adaptive skills. They can pick one or [...] website may be useful in this regard: http://www.valuklik/health/mentalhealth/develop_index.asp and Ms. Winter is encouraged to refer Susan to the [facility] Developmental Disabilities Program in order to secure a behavioral health case manager who can help find additional services and serve as an advocate. and Ms. Winter is also encouraged to contact the local Social Security Administration office regarding Supplemental Security Income (SSI) eligibility (disability benefits). For additional information please call [phone]. 3.Organizations such as the [employer] ([phone]) and [employer] (www.Dark Fibre [place].TribaLearning, ) may be additional sources for support and assistance. 4.Outside activities that boost Susan's self-esteem and allow her to demonstrate her strengths should be encouraged. These high-energy activities provide temporary escapes from stresses and academics, help maintain self-esteem, and help to engage her in positive interactions with others. Activities could include after-school clubs, sports, [employer], Girl Horticulture Worker (http://www.Catalyst Repository Systems.org/), martial arts, etc. Also, consider technology or workshop courses that build on Susan's strengths. 5. and Ms. Winter might check with the local [facility] and Recreation Program for appropriate classes. For example, [facility] and Recreation [facility] reportedly has swimming classes in which [...] To schedule an IEP partner please contact [phone]. 10.Susan would benefit from a reevaluation of her behavioral and educational status in approximately 1-2 years to document her continued progress. We would be happy to provide that evaluation, if requested. If interested at that time, the family is encouraged to contact our web content coordinator at [phone]. 11.The results of this evaluation should be [...] please refer to Dr. Ruiz's report. The [facility] recognizes that it is the responsibility of the parents and the school district's team to determine eligibility for special education and to make educational plans as appropriate. The information in this report may be used to help make these decisions. It was my pleasure to work with Suasn and her family today. The referral from Dr. Addison is much appreciated. If you have any questions about the information contained in this report or would like to discuss any aspects in greater detail, please do not hesitate to contact me at , pending appropriate permission. Kunal Wick Psy.D. Clinical Psychologist /david P C: 03/26/2006 DAVID cc: Electronically signed by Kunal Wick 03-28-2006 01:56:52 PM Emilia Jamison ranscription In - 03/27/2006 2:10 AM PDT [id number] 01/17/2006 03/19/2006 [id number] ARMIDA GONGORA N [id number] CLINIC DATE: 03/19/2006 CLINIC NAME: CHILD DEVELOPMENT - [facility] DISCIPLINE: SOCIAL WORK Susan is 5 years old and lives in [place], [place] with her parents, Kashif and Francoise. She has two sisters, Kirby, age 9, and Lazara, age 4 years. She is referred to our clinic by her mattress stuffer, Camille Addison MD, in [place]. This girl had been evaluated in our [...] in their development. Susan attends kindergarten at [employer]. She receives speech, physical and [...] 2 years. The mother, Laurence, is a mild disabilities teacher, and the father, Kashif, works in the August field. They have lived in [place] for about 9 years and have no extended family in the area. They have been for 10 years. Laurence is from [place], and Kashif is from [facility] [facility] [place]. They do like the [facility] and have support from friends and also from their druze. Both parents did well in school, and [...] X testing, be completed through the primary mattress stuffer's office. She should continue on her IEP as well and include a social skills group. For further recommendations, please refer to the report of the correctional case manager, Avelino Ruiz, PhD, Speech and Language Pathologist. ANDRE Overton/ravindra P cc: Electronically signed by Loni Purvis 03-26-2006 10:31:25 AM documented i n this encounter Plan of Treatment Not on filedocumented as of this encounter Visit Diagnoses Not on filedocumented in this encounter
--- OUTSIDE RECORDS SUMMARY | ~2020-07-22 | XMS | Encounter Summary ---
Demographics + + + | Address | [address] | | | [place] [address] | + + + | Home Phone | | + + + | Preferred Language | Unknown | + + + | Marital Status | Single | + + + | Pentecostal Affiliation | Unknown | + + + | Race | White | + + + | Ethnic Group | Not or | + + + Author + + + | Author | [facility] | + + + | Organization | [facility] | + + + | [...] | Heriberto Winter | ECON | [address] | | | | | [place] | | | | | [address] | | + + + + + Care Team Providers + +------+ + | Care Resource Recovery Specialist Name | Role | Phone | + +------+ + PCP | Unavailable | + +------+ + Encounter Details +--------+ + + + + | Date | Type | Department | Care Team | Description | +--------+ + + + + | 09/12/ | Document-Sc | Health Information | Unknown . | | | 2017 | anned | Services [id number] | | | | | [address] | | | | | | Mailcode: OP17A | | | | | | Formerly [facility] | | | | | | [place], [place] | | | | | | [address] | | | | | | [phone] | | | +--------+ + + + [...]
--- OUTSIDE RECORDS SUMMARY | ~2020-07-22 | XMS | Encounter Summary ---
Demographics + + + | Address | [address] | | | [place] [address] | + + + | Home Phone [...] [place] | | | | | [address] | | + + + + + Care Team Providers + +------+ + | Care Stock Patch Sawyer Name | Role | Phone | + [...] as of this encounter Progress Notes Interface, Risk And Insurance Consultant In - 06/17/2005 12:44 AM PDT [id number] 12/07/2004 12/07/2004 [id number] [facility] Date: 12/07/2004 CLINIC NAME: [facility] AUTISM CLINIC DISCIPLINE: OCCUPATIONAL THERAPY BACKGROUND INFORMATION: Susan is a 4-year 7-month-old female, [facility] by her primary care physician, Dr. Camille Addison. She is referred with concerns about her delayed language skills and some behavior problems, including some manipulative behavior and difficulty with inattention. Her parents, Heriberto and Francoise Winter also have concerns about her developmental delays, [...] program three days per week through the [facility]. She receives speech therapy two times per [...] percentile rank of 1. On the Visual Potato Spotter Scale, she obtained a T-score of 29 [...] that she understands the concept of the libertarian. At daycare, she has had some difficulty, [...] appears to be appropriately placed in an assembler erector special education classroom. She will also benefit [...] service may not be possible through the [facility], parents should strongly consider additional services in [...] not know of such a professional in [place], but if the parents are interested in coming to [place], perhaps this summer, we would recommend working with Dr. Jd Garcia, [facility]. 5. Susan should be referred to the [facility] Developmental Disabilities Program in order to determine whether she qualifies for services through them. 6. Additional information about regulatory issues can be found on the Internet at www.Tasqe.org. Parents may also benefit from reading the book, Raising Your Spirited Child , by Loan Marroquin. 7. Susan would benefit from a reevaluation of her developmental and behavioral status following her kindergarten year. We would be happy to provide this evaluation at parent request. To begin this intake process, please call the sample coordinator at [phone]. I appreciated the opportunity to meet and work with Susan and her family. If there are any questions or concerns regarding this report, please free to contact this therapist at [phone]. Annie Cruz/laron P [phone] cc: Electronically signed by Jud Gaines 01-02-2005 04:40:13 PM documented i n this encounter Plan of Treatment Not on filedocumented as of this encounter Visit Diagnoses Not on filedocumented in this encounter"
--- OUTSIDE RECORDS SUMMARY | ~2020-07-22 | XMS | Encounter Summary ---
Demographics + + + | Address | [address] | | | [place] [address] | + + + | Home Phone | | + + + | Preferred Language | Unknown | + + + | Marital Status | Single | + + + | Catholic Affiliation | Unknown | + + + | Race | White | + + + | Ethnic Group | Not or | + + + Author + + + | Author | [facility] | + + + | Organization | [facility] | + + + | Address | Unknown | + + + | Phone | Unavailable | + + + Support + + + + + | Name | Relationship | Address | Phone | + + + + + | None None | ECON | Unknown | Unavailable | + + + + + | Heriberto Winter | ECON | [address] | | | | | [place] | | | | | [address] | | + + + + + Care Team Providers + +------+ + | Care Drop Hammer Pile Driver Operator Name | Role | Phone | [...] as of this encounter Progress Notes Interface, Process Architect In - 06/17/2005 12:44 AM PDT [id number] 12/07/2004 12/07/2004 [id number] [facility] Date: 12/07/2004 Clinic Name Autism Clinic Discipline Speech Language Pathology Susan Winter, a [age]-year, phcag-gtqej-aft girl, was [facility]. Susan was referred for this developmental evaluation by her primary care physician, Dr. Camille Addison, of [place], [place]. Susan was evaluated through the Autism [...] young lady is currently enrolled in an cellophane bath mixer special education classroom through the [facility]. She does participate three times [...] believe that this young lady's eligibility for cellophane bath mixer special education is under developmental delay. This [...] routines by actively participating in a birthday libertarian scenario and recognized the baby doll as [...] presented including those used in a birthday libertarian scenario and small figures. Susan did have [...] that Susan is appropriately placed in her cellophane bath mixer special education classroom. She may also benefit [...] service may not be possible through the cellophane bath mixer special education program; however, we would recommend [...] please see individual discipline reports. Anil Marcos M.S., C.C.C. - S.L.P. Licensed Speech Language Pathologist [facility] [id number] A C: 12/19/2004 KBB [id number] Electronically signed by Anil Marcos 12-19-2004 01:37:51 PM documented i n this encounter Plan of Treatment Not on filedocumented as of this encounter Visit Diagnoses Not on filedocumented in this encounter"
--- OUTSIDE RECORDS SUMMARY | ~2020-07-22 | XMS | Encounter Summary ---
Demographics + + + | Address | [address] | | | [place] [address] | + + + | Home Phone | | + + + | Preferred Language | Unknown | + + + | Marital Status | Single | + + + | Episcopalian Affiliation | Unknown | + + + [...] | Heriberto Winter | ECON | [address] | | | | | [place] | | | | | [address] | | + + + + + Care Team Providers + +------+ + | Care Asic Engineer Name | Role | Phone | [...] as of this encounter Progress Notes Interface, Community Health Navigator In - 06/17/2005 1:01 AM PDT [id number] 12/07/2004 12/07/2004 [id number] [facility] Date: 12/07/2004 Clinic Name Autism Discipline Developmental Pediatrics Susan is a 4-1/2-year-old little girl from [place] who was referred by her regular transitional nurse, Dr. Addison, for evaluation of her development. She was accompanied by her parents, Heriberto and Francoise, who were interviewed. The parents report that neither they nor Dr. Addison have been terribly concerned about autism in Susan, though they can see a few characteristics. They are more concerned about her general development being mildly slow. She was recently evaluated at the local education service [facility] and found to have mildly depressed developmental scores, both in cognitive and speech and language areas. Previously, on two occasions, when she was 24 and 30 months old, she had evaluations for Center Administrator Special Education services and was found ineligible because she did not have enough of a delay. The more recent testing found her to qualify, and she has begun Center Administrator Special Education services and been attending them three times a week for the last two months or so. Heriberto and Francoise report first having become concerned about Susan's [...] at home and likes to be her metal bonding helper. 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 There were no problems with the [...] a half evaluating Susan. Edgar Pacheco M.D. Developmental-Index Clerk [id number] P [id number] Electronically signed by Edgar Pacheco 12-14-2004 11:26:28 AM documented i n this encounter Plan of Treatment Not on filedocumented as of this encounter Visit Diagnoses Not on filedocumented in this encounter"
--- OUTSIDE RECORDS SUMMARY | 2020-07-22 13:44 | XMS ---
PreManage Notification: ROLAN HUFFMAN Security Ink Printer Events No recent Security Events currently on file CRITERIA MET - [facility] - Has Care Guidelines CARE PROVIDERS MELONIE REDDY Internal Medicine: Pulmonary Disease 03/16/2019-Current PHONE: Unknown Guidelines Source: [facility] Guidelines Date: 03/16/2019 Care Coordination: Currently engaged in mental health services with [facility].\T\nbsp; Please contact [facility] with mental health concerns.\T\nbsp; Gladis/Maxx Silveira: \T\nbsp; [phone]\T\nbsp; Jneny:\T\nbsp; [phone]. Care History Medical/Surgical 03/16/2019 [facility] - Patient is currently established with [facility]. If patient is seen in the ED during business hours. Please contact CHWs at [facility]. Care Recommendation: This patient has had [...] providing care. E.D. VISIT COUNT (12 MO.) 3 ZARA Mathias TOTAL 3 NOTE: Visits indicate total known visits. ED/UCC VISIT TRACKING (12 MO.) 07/22/2020 13:42 [facility] [place] TYPE: Emergency COMPLAINT: - R ANKLE INJURY 05/15/2020 11:26 [facility] [place] TYPE: Emergency COMPLAINT: - FEVER, COUGH, SORE THROAT- MSE TO CLINIC5 DIAGNOSES: - Fever, unspecified - Acute pharyngitis, unspecified 12/17/2019 17:26 [facility] [place] TYPE: Emergency COMPLAINT: - MEDICAL CLEARANCE DIAGNOSES: - Encounter for other general examination - Other correction (current) drug therapy - Nicotine dependence, unspecified, uncomplicated - Major depressive disorder, single episode, unspecified - Suicidal ideations - Anxiety disorder, unspecified INPATIENT VISIT TRACKING (12 MO.) No inpatient visits to display in this time frame [email or web address]
--- NOTE | 2020-07-22 22:33 | EKG ---
[facility] [address] [facility] [place] [address] Signed Sinus tachycardia Minimal voltage criteria for LVH, may be normal variant Cannot rule out Anterior infarct , age undetermined Abnormal ECG When compared with ECG of 22-OCT-2018 09:10, ST no longer elevated in Inferior leads Non-specific change in ST segment in Lateral leads Confirmed by LILLIANA HERRING MD ([id number]) on 07/22/2020 10:33:24 PM Electronically Signed By: LILLIANA HERRING MD 07/22/20 [id number] PATIENT NAME: ROLAN HUFFMAN Electrocardiogram DATE OF : [birth year] PHYSICIAN: LILLIANA HERRING MD REPORT #: [id number] REPORT IS CONFIDENTIAL AND NOT TO BE RELEASED WITHOUT AUTHORIZATION
== END 2020-07-22 16:00 | disposition home or self-care (01) ==
LOC: ED 13:42
DX: S93.402A Sprain of unspecified ligament of left ankle, initial encounter (principal); E86.0 Dehydration; R00.0 Tachycardia, unspecified; F32.9 Major depressive disorder, single episode, unspecified; F90.9 Attention-deficit hyperactivity disorder, unspecified type; F41.9 Anxiety disorder, unspecified; F17.200 Nicotine dependence, unspecified, uncomplicated; Z79.899 Other long term (current) drug therapy; X50.1XXA Overexertion from prolonged static or awkward postures, initial encounter
CPT/HCPCS: 73610; 73630; 93005; 93010; 96361; 96374; 99285-25; J1885; J7030

== ENCOUNTER 2021-01-22 19:00 | Emergency (ER) | payer OTHER ==
[~2021-01-22] VITALS: Ht 170.2 cm; Wt 111.6 kg
[2021-01-22] MEDS ORDERED: ATIVAN1 MG PO (19:19)
== END 2021-01-22 21:49 | disposition home or self-care (01) ==
LOC: ED 19:00
DX: R10.11 Right upper quadrant pain (principal); F17.200 Nicotine dependence, unspecified, uncomplicated; Z79.899 Other long term (current) drug therapy
CPT/HCPCS: 74177; 80053; 81001; 83690; 84703; 85025; 96375; 99284-25; J1170; J2405; J7030; Q9967

== ENCOUNTER 2021-02-03 12:11 | Emergency (ER) | payer OTHER ==
[~2021-02-03] VITALS: Ht 170.2 cm; Wt 111.6 kg
[~2021-02-03 12:11] MED LIST changes: +ATIVAN1 MG PO
--- OUTSIDE RECORDS SUMMARY | 2021-02-03 12:14 | XMS ---
PreManage Notification: ROLAN HUFFMAN Security Metal Sheet Roller Operator Events No recent Security Events currently on file CRITERIA MET - [facility] - 2 Visits in 30 Days CARE PROVIDERS MELONIE REDDY Internal Medicine: Pulmonary Disease 03/16/2019-Current PHONE: Unknown Care Guidelines exist for the following facilities: [facility] ( 01/02/2021 ) Care History Medical/Surgical 03/16/2019 [facility] - Patient is currently established with [facility]. If patient is seen in the ED during business hours. Please contact CHWs at [facility]. Care Recommendation: This patient has had [...] providing care. E.D. VISIT COUNT (12 MO.) 4 [facility] TOTAL 4 NOTE: Visits indicate total known visits. ED/UCC VISIT TRACKING (12 MO.) 02/03/2021 12:11 [facility] [place] TYPE: Emergency COMPLAINT: - LT SIDE PAIN/LOWER BACK 01/22/2021 19:01 [facility] [place] TYPE: Emergency COMPLAINT: - RT SIDE FLANK PAIN DIAGNOSES: - Other senior care (current) drug therapy - Nicotine dependence, unspecified, uncomplicated - Right upper quadrant pain 07/22/2020 13:42 [facility] [place] TYPE: Emergency COMPLAINT: - LT ANKLE INJURY DIAGNOSES: - Dehydration - Anxiety disorder, unspecified - Attention-deficit hyperactivity disorder, unspecified type - Nicotine dependence, unspecified, uncomplicated - Major depressive disorder, single episode, unspecified - Other senior care (current) drug therapy - Overexertion from prolonged static or awkward postures, initial encounter - Tachycardia, unspecified - Pain in left ankle and joints of left foot - Sprain of unspecified ligament of left ankle, initial encounter 05/15/2020 11:26 [facility] [place] TYPE: Emergency COMPLAINT: - FEVER, COUGH, SORE THROAT- MSE TO CLINIC5 DIAGNOSES: - Fever, unspecified - Acute pharyngitis, unspecified INPATIENT VISIT TRACKING (12 MO.) No inpatient visits to display in this time frame [email or web address]
[2021-02-03] MEDS ORDERED: GUANFACINE HCL E2 MG PO (12:25)
[2021-02-03] MEDS ORDERED: NITROFURANTOIN100 M1 PO (12:25)
--- NOTE | 2021-02-03 14:47 | EKG ---
[facility] [address] [place] [address] Signed Atrial flutter with 2:1 AV conduction Nonspecific T wave abnormality Abnormal ECG When compared with ECG of 22-JUL-2020 14:47, Atrial flutter has replaced Sinus rhythm Inverted T waves have replaced nonspecific T wave abnormality in Lateral leads Confirmed by LILLIANA HERRING MD ([id number]) on 02/03/2021 2:47:29 PM Electronically Signed By: LILLIANA HERRING MD 02/03/21 1447 PATIENT NAME: ROLAN HUFFMAN Electrocardiogram DATE OF : 00 PHYSICIAN: LILLIANA HERRING MD REPORT #: [id number] REPORT IS CONFIDENTIAL AND NOT TO BE RELEASED WITHOUT AUTHORIZATION
[2021-02-03] MEDS ORDERED: PEPCID20 MG PO (16:26)
== END 2021-02-03 16:46 | disposition home or self-care (01) ==
LOC: ED 12:11
DX: K21.9 Gastro-esophageal reflux disease without esophagitis (principal); R00.0 Tachycardia, unspecified; F17.200 Nicotine dependence, unspecified, uncomplicated; Z79.899 Other long term (current) drug therapy
CPT/HCPCS: 74177; 93005; 93010; 99284-25; J2405; J7030; Q9967

== ENCOUNTER 2021-04-17 02:05 | Emergency (ER) | payer OTHER ==
[~2021-04-17] VITALS: Ht 170.2 cm; Wt 111.6 kg
[~2021-04-17 02:05] MED LIST changes: +NITROFURANTOIN100 M1 PO; +PEPCID20 MG PO
== END 2021-04-17 03:30 | disposition home or self-care (01) ==
LOC: ED 02:05
DX: R10.12 Left upper quadrant pain (principal); F17.200 Nicotine dependence, unspecified, uncomplicated; Z79.899 Other long term (current) drug therapy
CPT/HCPCS: 81001; 84703; 99284

== ENCOUNTER 2021-05-16 18:45 | Emergency (ER) | payer OTHER ==
[~2021-05-16] VITALS: Ht 170.2 cm; Wt 111.6 kg
--- OUTSIDE RECORDS SUMMARY | 2021-05-16 18:51 | XMS ---
PreManage Notification: ROLAN HUFFMAN Security Photo Booth Operator Events No recent Security Events currently on file CRITERIA MET - [facility] - 2 Visits in 30 Days CARE PROVIDERS MELONIE REDDY Internal Medicine: Pulmonary Disease 03/16/2019-Current PHONE: Unknown Care Guidelines exist for the following facilities: [facility] ( 01/02/2021 ) Care History Medical/Surgical 03/16/2019 [facility] - Patient is currently established with [facility]. If patient is seen in the ED during business hours. Please contact CHWs at [facility]. Care Recommendation: This patient has had [...] providing care. E.D. VISIT COUNT (12 MO.) 5 ZARA Mathias TOTAL 5 NOTE: Visits indicate total known visits. ED/UCC VISIT TRACKING (12 MO.) 05/16/2021 18:46 [facility] [place] TYPE: Emergency COMPLAINT: - LEFT ANKLE INJURY 04/17/2021 02:05 [facility] [place] TYPE: Emergency COMPLAINT: - LT SIDE PAIN DIAGNOSES: - Other care home (current) drug therapy - Nicotine dependence, unspecified, uncomplicated - Left upper quadrant pain 02/03/2021 12:11 [facility] [place] TYPE: Emergency COMPLAINT: - LT SIDE PAIN/LOWER BACK DIAGNOSES: - Unspecified abdominal pain - Nicotine dependence, unspecified, uncomplicated - Gastro-esophageal reflux disease without esophagitis - Tachycardia, unspecified - Other intermediate designer (current) drug therapy 01/22/2021 19:01 [facility] [place] TYPE: Emergency COMPLAINT: - RT SIDE FLANK PAIN DIAGNOSES: - Other care home (current) drug therapy - Nicotine dependence, unspecified, uncomplicated - Right upper quadrant pain 07/22/2020 13:42 [facility] [place] TYPE: Emergency COMPLAINT: - LT ANKLE INJURY DIAGNOSES: - Dehydration - Anxiety disorder, unspecified - Attention-deficit hyperactivity disorder, unspecified type - Nicotine dependence, unspecified, uncomplicated - Major depressive disorder, single episode, unspecified - Other care home (current) drug therapy - Overexertion from prolonged static or awkward postures, initial encounter - Tachycardia, unspecified - Pain in left ankle and joints of left foot - Sprain of unspecified ligament of left ankle, initial encounter INPATIENT VISIT TRACKING (12 MO.) No inpatient visits to display in this time frame [email or web address]
== END 2021-05-16 19:29 | disposition home or self-care (01) ==
LOC: ED 18:45
DX: S93.402A Sprain of unspecified ligament of left ankle, initial encounter (principal); S93.602A Unspecified sprain of left foot, initial encounter; W01.10XA Fall on same level from slipping, tripping and stumbling with subsequent striking against unspecified object, initial encounter; F17.200 Nicotine dependence, unspecified, uncomplicated; Z79.899 Other long term (current) drug therapy
CPT/HCPCS: 73610; 73630; 99283-25

== ENCOUNTER 2021-07-10 19:57 | Emergency (ER) | payer OTHER ==
[~2021-07-10] VITALS: Ht 170.2 cm; Wt 111.6 kg
--- NOTE | 2021-07-11 14:30 | EKG ---
[facility] [address] [place] [address] Signed Sinus rhythm with marked sinus arrhythmia Nonspecific T wave abnormality Abnormal ECG When compared with ECG of 03-FEB-2021 12:39, Sinus rhythm has replaced Atrial flutter Vent. rate has decreased BY 75 BPM Non-specific change in ST segment in Lateral leads T wave inversion no longer evident in Lateral leads Confirmed by DONNA WARD MD ([id number]) on 07/11/2021 2:30:06 PM Electronically Signed By: DONNA WARD MD 07/11/21 1430 PATIENT NAME: ROLAN HUFFMAN Electrocardiogram DATE OF : 00 PHYSICIAN: DONNA WARD MD REPORT #: [id number] REPORT IS CONFIDENTIAL AND NOT TO BE RELEASED WITHOUT AUTHORIZATION
== END 2021-07-10 23:21 | disposition home or self-care (01) ==
LOC: ED 19:57
DX: T40.7X1A Poisoning by cannabis (derivatives), accidental (unintentional), initial encounter (principal); F17.200 Nicotine dependence, unspecified, uncomplicated; Z79.899 Other long term (current) drug therapy
CPT/HCPCS: 80053; 81001; 84443; 84703; 85025; 93005; 93010; 99284-25; G0480